=== PATIENT | female | born 1960 | race Caucasian/White ===

== ENCOUNTER 2022-10-22 18:08 | Inpatient (IN) ==
[2022-10-22] MEDS ORDERED: CEFEPIME 2,000 MG/20 ML VIAL IV STA (18:27)
[2022-10-22] MEDS ORDERED: ACETAMINOPHEN 500 MG TAB PO STA (18:27)
[2022-10-22] MEDS ORDERED: SODIUM CHLORIDE 0.9% 1000ML 1,000 ML IV ONE (18:30)
--- NOTE | 2022-10-22 18:35 | Emergency Department Note ---
History of Present Illness General Chief complaint: Fever Stated complaint: FEVER Time Seen by Provider: 10/22/22 18:17 History of Present Illness 61 year old female who presents to ED today with c/o abdominal pain and fever. Patient states she started with periumbilical abdominal pain that radiates to her LLQ about 1 week ago. She noted increasing gas and loose stools at that time as well. On Monday, she had a low grade fever of 99. She has a history of diverticulitis and suspected symptoms were related to that. She called her PCP on who started her on Cipro and Flagyl. She has been taking these since evening. She was seeing improvement in her symptoms up until today when she felt generally unwell and developed another fever. She continues with LLQ abdominal pain but states her BMs have been normal. She denies diarrhea/constipation, hematochezia, or melena. No urinary symptoms. She also reports some nausea and decreased appetite. She tried Tylenol this AM for her pain which did seem to help. Patient notes history of lung CA s/p left upper lobe resection and just recently started immunotherapy in September. She denies chest pain. She reports baseline SOB secondary to her lung CA and does state it seems to be worsening over the last 2 weeks. She denies recent cold like sympto ms. Home Medications Medication Instructions Recorded Confirmed Type acetaminophen 500 mg tablet 1,000 mg PO Q6H PRN Pain 08/04/19 10/22/22 History (Tylenol Extra Strength) cetirizine 10 mg tablet (Zyrtec) 10 mg PO DAILY PRN Allergy Symptoms 08/04/19 10/22/22 History diphenhydramine HCl 25 mg tablet 25 - 50 mg PO Q6H PRN Allergic 08/04/19 10/22/22 History (Benadryl Allergy) Symptoms ibuprofen 200 mg tablet 200 - 400 mg PO Q6H PRN Pain 08/04/19 10/22/22 History omeprazole 20 mg capsule,delayed 20 mg PO QAM Acid Reflux 08/04/19 10/22/22 History release sertraline 50 mg tablet (Zoloft) 75 mg PO QAM 08/04/19 10/22/22 History alprazolam 0.5 mg tablet 0.5 mg PO TID PRN .anxiety when 02/16/22 10/22/22 History flying metformin 500 mg tablet,extended 500 mg PO QAM 02/16/22 10/22/22 History release 24 hr magnesium oxide 400 mg PO BID 05/03/22 10/22/22 History atorvastatin 80 mg tablet 80 mg PO QAM 10/22/22 10/22/22 History ciprofloxacin HCl 500 mg tablet 500 mg PO BID 10/22/22 10/22/22 History ezetimibe 10 mg tablet 10 mg PO QAM 10/22/22 10/22/22 History metronidazole 500 mg tablet 500 mg PO BID 10/22/22 10/22/22 History Allergies Allergy/AdvReac Type Severity Reaction Status Date / Time vaccine adjuvant system, Allergy Intermediate Hives Verified 10/22/22 19:13 [id number] liposomal [From Shingrix (PF)] varicella-zoster virus Allergy Intermediate Hives Verified 10/22/22 19:13 glycoprotein E, recombinant [From Shingrix (PF)] Past Med/Surg History Medical History (Updated 10/22/22 @ 21:26 by Mona Westbrook PA-C) Acid reflux Adenocarcinoma l upper lobe Depression Diverticulitis Diverticulosis Multiple gastric polyps Type 2 diabetes mellitus Surgical History (Updated 05/03/22 @ 12:25 by Leola Bronson RN) H/O colonoscopy H/O esophagogastroduodenoscopy H/O oral surgery H/O partial resection of colon History of lobectomy of lung left upper lobe Family History (Updated 05/03/22 @ 12:26 by Leola Bronson RN) Grandfather (Paternal) Angina pectoris Grandmother (Paternal) Myocardial infarction Social History (Updated 05/03/22 @ 12:33 by Leola Bronson RN) Smoking Status: Never smoker Hx Alcohol Use: Yes Alcohol type: wine Alcohol Intake Frequency: Monthly or Less Hx Substance Use: No Preferred Language: Tongan Communication Ability: Effective Visual Impairment: No Limitations Hearing Ability: Normal Beliefs That Will Affect Care: None marital status: Current Living Situation: Spouse and Family current occupational status: employed current occupation: promotional products distributor Feels Safe at Home: Yes Childhood Exposure to Second-Hand Smoke: Yes (In the home) caffeine: Yes (tea) Dental Care, Regularly: Yes Physical Activity Frequency: 3-4 Times per Week Seatbelt Use: always Sunscreen Use: Yes Do you think of yourself as: straight/heterosexual Gender Identity: Female Physical Exam Vital Signs Vital Signs - 24 hr 10/22/22 18:10 10/22/22 18:20 10/22/22 18:19 Temperature 38.4 C H Temperature Source Oral Pulse Rate 121 H 114 H 116 H Pulse Rate [Left Brachial] Pulse Rhythm Regular Pulse Rhythm [Left Brachial] Pulse Strength [Left Brachial] Respiratory Rate 18 Respiratory Effort / Characteristics Respiratory Depth Respiratory Pattern Blood Pressure 135/79 Blood Pressure [Left Arm] Blood Pressure Mean 97 Blood Pressure Mean [Left Arm] Blood Pressure Position [Left Arm] Pulse Oximetry 97 96 Oxygen Delivery Method Room Air Room Air Sepsis Recent Fever Within 48 Hours Yes Sepsis New/Unexplained Change in Mental Status No Sepsis Action Taken by Nursing No Action Required 10/22/22 18:27 10/22/22 19:24 10/22/22 19:34 Temperature 37.9 C H 37.8 C H 37.7 C H Temperature Source Oral Oral Oral Pulse Rate Pulse Rate [Left Brachial] 110 H Pulse Rhythm Pulse Rhythm [Left Brachial] Regular Regular Regular Pulse Strength [Left Brachial] Normal Normal Normal Respiratory Rate 19 19 19 Respiratory Effort / Characteristics Non-Labored Spontaneous Non-Labored Spontaneous Non-Labored Spontaneous Respiratory Depth Normal Normal Normal Respiratory Pattern Regular Regular Blood Pressure Blood Pressure [Left Arm] 129/71 129/71 114/66 Blood Pressure Mean Blood Pressure Mean [Left Arm] 90 90 82 Blood Pressure Position [Left Arm] Lying Lying Lying Pulse Oximetry 94 95 95 Oxygen Delivery Method Room Air Room Air Room Air Sepsis Recent Fever Within 48 Hours Sepsis New/Unexplained Change in Mental Status Sepsis Action Taken by Nursing 10/22/22 21:12 Temperature 37.5 C Temperature Source Oral Pulse Rate Pulse Rate [Left Brachial] 106 H Pulse Rhythm Pulse Rhythm [Left Brachial] Regular Pulse Strength [Left Brachial] Normal Respiratory Rate 19 Respiratory Effort / Characteristics Non-Labored Spontaneous Respiratory Depth Normal Respiratory Pattern Regular Blood Pressure Blood Pressure [Left Arm] 123/79 Blood Pressure Mean Blood Pressure Mean [Left Arm] 93 Blood Pressure Position [Left Arm] Lying Pulse Oximetry 96 Oxygen Delivery Method Room Air Sepsis Recent Fever Within 48 Hours Sepsis New/Unexplained Change in Mental Status Sepsis Action Taken by Nursing Constitutional: alert and oriented x3. no acute distress. Respiratory: lungs are clear to auscultation without wheezes, rhonchi, or rales bilaterally. equal chest rise. normal respiratory effort, no accessory muscle use. Cardiovascular: normal heart sounds without murmur. regular rate and rhythm. GI: abdomen is soft, nondistended. Periumbilical and LLQ tenderness. nl bowel sounds present throughout. No palpable masses. No rebound tenderness or guarding. No CVA tenderness Neuro: without focal neuro deficits. Psych:appropriate mood and affect. Course Administered Medications Discontinued Medications Acetaminophen (Acetaminophen 500 Mg Tab) 1,000 mg PO NOW STA Stop: 10/22/22 18:28 Last Admin: 10/22/22 19:05 Dose: 1,000 mg Documented By: JAMES Cefepime HCl (Maxipime) 2,000 mg in 20 mls @ 5 mls/min IV NOW STA; Protocol Stop: 10/22/22 18:30 Last Admin: 10/22/22 19:07 Dose: 5 mls/min Documented By: JAMES Sodium Chloride (Nss 1000ml) 1,000 mls @ 999 mls/hr IV .Q1H1M VICKI Stop: 10/22/22 20:30 Last Admin: 10/22/22 20:36 Dose: Not Given Documented By: Admin: 10/22/22 20:28 Dose: 999 mls/hr Documented By: JAMES Sodium Chloride (Nss 1000ml) 1,000 mls @ 999 mls/hr IV .Q1H1M ONE Stop: 10/22/22 19:30 Last Infusion: 10/22/22 20:23 Dose: 0 mls/hr Documented By: Admin: 10/22/22 19:04 Dose: 999 mls/hr Documented By: JAMES Ioversol (Optiray 350 100ml) 88 ml IV ONCE ONE Stop: 10/22/22 20:01 Last Admin: 10/22/22 20:01 Dose: 88 ml Documented By: MAVERICK Medical Decision Making Differential Diagnosis diverticulitis, colitis, sepsis, UTI, pyelonephritis, SBO, mesenteric ischemia, nephrolithiasis, pancreatitis, gallbladder disease, as well as other pathologies. Laboratory Data Attestation: I reviewed the patient's lab results. 10/22/22 18:58 10/22/22 18:58 Lab Results 10/22/22 10/22/22 10/22/22 Range/Units 18:58 18:58 18:58 WBC 4.04 L (4.8-10.8) K/ul RBC 3.23 L (4.20-5.40) M/uL Hgb 9.3 L (12.0-16.0) g/dl Hct 27.2 L (37.0-47.0) % MCV 84.2 (80.0-100.0) fL MCH 28.8 (25.0-34.0) pg MCHC 34.2 (32.0-36.0) g/dL RDW Std Deviation 49.8 H (36.4-46.3) fL RDW Coeff of Geo 16.3 H (11.5-14.5) % Plt Count 137 (130-400) K/uL MPV 9.4 (9.4-12.4) fL Immature Gran % (Auto) 0.5 % Neut % (Auto) 77.8 % Lymph % (Auto) 13.1 % [place] % (Auto) 7.2 % Eos % (Auto) 1.2 % Baso % (Auto) 0.2 % Neut # (Auto) 3.14 (1.40-6.50) K/uL Lymph # (Auto) 0.53 L (1.2-3.4) K/uL [place] # (Auto) 0.29 (0.11-0.59) K/uL Eos # (Auto) 0.05 (0-0.50) K/uL Baso # (Auto) 0.01 (0-0.2) K/uL Immature Gran # (Auto) 0.02 (0.01-0.20) K/uL PT (9.0-12.0) Seconds INR (0.9-1.1) APTT (21.0-31.0) Seconds PTT Ratio Sodium 139 (136-145) mmol/L Potassium 3.4 L (3.5-5.1) mmol/L Chloride 104 (98-107) mmol/L Carbon Dioxide 29 (21-32) mmol/L Anion Gap 6 (3-11) BUN 20 (6-23) mg/dl Creatinine 1.00 (0.6-1.2) mg/dl Est Cr Clr Drug Dosing 53.2 ml/min Est GFR ( Amer) 70.4 ml/min Est GFR (Non-Af Amer) 60.8 ml/min BUN/Creatinine Ratio 20.0 (10-20) Glucose 120 H (70-99(Fasting)) mg/dl Lactate 1.3 (0.4-2.0) mmol/L Calcium 8.9 (8.5-10.1) mg/dl Magnesium 1.3 L (1.7-2.4) mg/dl Total Bilirubin 1.0 (0.2-1.0) mg/dl Direct Bilirubin 0.2 (0-0.2) mg/dl AST 20 (13-39) U/L ALT 17 (7-52) U/L Alkaline Phosphatase 79 (34-104) U/L Troponin I High Sens 3.3 (0-14) pg/ml Total Protein 7.1 (6.0-8.3) gm/dl Albumin 4.4 (3.4-5.0) gm/dl Procalcitonin (0-0.5) ng/ml Urine Color Urine Appearance (Clear) Urine pH (4.5-7.5) Ur Specific [place] (1.000-1.030) Urine Protein (Negative) Urine Glucose (UA) (Negative) Urine Ketones (Negative) Urine Blood (Negative) Urine Nitrite (Negative) Urine Bilirubin (Negative) Urine Urobilinogen (Negative) Ur Leukocyte Esterase (Negative) Urine WBC (Auto) (0-5) /hpf Urine RBC (Auto) (0-4) /hpf U Hyaline Cast (Auto) (0-5) /lpf U Epithel Cells (Auto) (0-5) /lpf Urine Bacteria (Auto) (Negative) Adenovirus (PCR) (NotDetected) B. pertussis DNA (PCR) (NotDetected) B.parapertussis DNA PCR (NotDetected) C. pneumoniae DNA (PCR) (NotDetected) Coronavirus OC43 (PCR) (NotDetected) Coronavirus HKU1 (PCR) (NotDetected) Coronavirus 229E (PCR) (NotDetected) SARS-CoV-2 (PCR) (NotDetected) Coronavirus NL63 (PCR) (NotDetected) Human Metapneumovir PCR (NotDetected) Influenza Type A (PCR) (NotDetected) Influenza Type B (PCR) (NotDetected) M. pneumoniae (PCR) (NotDetected) Parainfluenza 1 (PCR) (NotDetected) Parainfluenza 2 (PCR) (NotDetected) Parainfluenza 3 (PCR) (NotDetected) Parainfluenza 4 (PCR) (NotDetected) RSV (PCR) (NotDetected) Entero/Rhino (PCR) (NotDetected) 10/22/22 10/22/22 10/22/22 Range/Units 18:58 18:58 19:10 WBC (4.8-10.8) K/ul RBC (4.20-5.40) M/uL Hgb (12.0-16.0) g/dl Hct (37.0-47.0) % MCV (80.0-100.0) fL MCH (25.0-34.0) pg MCHC (32.0-36.0) g/dL RDW Std Deviation (36.4-46.3) fL RDW Coeff of Geo (11.5-14.5) % Plt Count (130-400) K/uL MPV (9.4-12.4) fL Immature Gran % (Auto) % Neut % (Auto) % Lymph % (Auto) % [place] % (Auto) % Eos % (Auto) % Baso % (Auto) % Neut # (Auto) (1.40-6.50) K/uL Lymph # (Auto) (1.2-3.4) K/uL [place] # (Auto) (0.11-0.59) K/uL Eos # (Auto) (0-0.50) K/uL Baso # (Auto) (0-0.2) K/uL Immature Gran # (Auto) (0.01-0.20) K/uL PT 10.9 (9.0-12.0) Seconds INR 1.0 (0.9-1.1) APTT 24.8 (21.0-31.0) Seconds PTT Ratio 0.9 Sodium (136-145) mmol/L Potassium (3.5-5.1) mmol/L Chloride (98-107) mmol/L Carbon Dioxide (21-32) mmol/L Anion Gap (3-11) BUN (6-23) mg/dl Creatinine (0.6-1.2) mg/dl Est Cr Clr Drug Dosing ml/min Est GFR ( Amer) ml/min Est GFR (Non-Af Amer) ml/min BUN/Creatinine Ratio (10-20) Glucose (70-99(Fasting)) mg/dl Lactate (0.4-2.0) mmol/L Calcium (8.5-10.1) mg/dl Magnesium (1.7-2.4) mg/dl Total Bilirubin (0.2-1.0) mg/dl Direct Bilirubin (0-0.2) mg/dl AST (13-39) U/L ALT (7-52) U/L Alkaline Phosphatase (34-104) U/L Troponin I High Sens (0-14) pg/ml Total Protein (6.0-8.3) gm/dl Albumin (3.4-5.0) gm/dl Procalcitonin 0.07 (0-0.5) ng/ml Urine Color Urine Appearance (Clear) Urine pH (4.5-7.5) Ur Specific [place] (1.000-1.030) Urine Protein (Negative) Urine Glucose (UA) (Negative) Urine Ketones (Negative) Urine Blood (Negative) Urine Nitrite (Negative) Urine Bilirubin (Negative) Urine Urobilinogen (Negative) Ur Leukocyte Esterase (Negative) Urine WBC (Auto) (0-5) /hpf Urine RBC (Auto) (0-4) /hpf U Hyaline Cast (Auto) (0-5) /lpf U Epithel Cells (Auto) (0-5) /lpf Urine Bacteria (Auto) (Negative) Adenovirus (PCR) Not Detected (NotDetected) B. pertussis DNA (PCR) Not Detected (NotDetected) B.parapertussis DNA PCR Not Detected (NotDetected) C. pneumoniae DNA (PCR) Not Detected (NotDetected) Coronavirus OC43 (PCR) Not Detected (NotDetected) Coronavirus HKU1 (PCR) Not Detected (NotDetected) Coronavirus 229E (PCR) Not Detected (NotDetected) SARS-CoV-2 (PCR) Not Detected (NotDetected) Coronavirus NL63 (PCR) Not Detected (NotDetected) Human Metapneumovir PCR Not Detected (NotDetected) Influenza Type A (PCR) Not Detected (NotDetected) Influenza Type B (PCR) Not Detected (NotDetected) M. pneumoniae (PCR) Not Detected (NotDetected) Parainfluenza 1 (PCR) Not Detected (NotDetected) Parainfluenza 2 (PCR) Not Detected (NotDetected) Parainfluenza 3 (PCR) Not Detected (NotDetected) Parainfluenza 4 (PCR) Not Detected (NotDetected) RSV (PCR) Not Detected (NotDetected) Entero/Rhino (PCR) Not Detected (NotDetected) 10/22/22 Range/Units 19:40 WBC (4.8-10.8) K/ul RBC (4.20-5.40) M/uL Hgb (12.0-16.0) g/dl Hct (37.0-47.0) % MCV (80.0-100.0) fL MCH (25.0-34.0) pg MCHC (32.0-36.0) g/dL RDW Std Deviation (36.4-46.3) fL RDW Coeff of Geo (11.5-14.5) % Plt Count (130-400) K/uL MPV (9.4-12.4) fL Immature Gran % (Auto) % Neut % (Auto) % Lymph % (Auto) % [place] % (Auto) % Eos % (Auto) % Baso % (Auto) % Neut # (Auto) (1.40-6.50) K/uL Lymph # (Auto) (1.2-3.4) K/uL [place] # (Auto) (0.11-0.59) K/uL Eos # (Auto) (0-0.50) K/uL Baso # (Auto) (0-0.2) K/uL Immature Gran # (Auto) (0.01-0.20) K/uL PT (9.0-12.0) Seconds INR (0.9-1.1) APTT (21.0-31.0) Seconds PTT Ratio Sodium (136-145) mmol/L Potassium (3.5-5.1) mmol/L Chloride (98-107) mmol/L Carbon Dioxide (21-32) mmol/L Anion Gap (3-11) BUN (6-23) mg/dl Creatinine (0.6-1.2) mg/dl Est Cr Clr Drug Dosing ml/min Est GFR ( Amer) ml/min Est GFR (Non-Af Amer) ml/min BUN/Creatinine Ratio (10-20) Glucose (70-99(Fasting)) mg/dl Lactate (0.4-2.0) mmol/L Calcium (8.5-10.1) mg/dl Magnesium (1.7-2.4) mg/dl Total Bilirubin (0.2-1.0) mg/dl Direct Bilirubin (0-0.2) mg/dl AST (13-39) U/L ALT (7-52) U/L Alkaline Phosphatase (34-104) U/L Troponin I High Sens (0-14) pg/ml Total Protein (6.0-8.3) gm/dl Albumin (3.4-5.0) gm/dl Procalcitonin (0-0.5) ng/ml Urine Color Yellow Urine Appearance Clear (Clear) Urine pH 5.5 (4.5-7.5) Ur Specific [place] 1.020 (1.000-1.030) Urine Protein Negative (Negative) Urine Glucose (UA) Negative (Negative) Urine Ketones Trace H (Negative) Urine Blood Negative (Negative) Urine Nitrite Negative (Negative) Urine Bilirubin Negative (Negative) Urine Urobilinogen Negative (Negative) Ur Leukocyte Esterase Trace H (Negative) Urine WBC (Auto) 1-5 (0-5) /hpf Urine RBC (Auto) 0-4 (0-4) /hpf U Hyaline Cast (Auto) 1-5 (0-5) /lpf U Epithel Cells (Auto) 10-20 H (0-5) /lpf Urine Bacteria (Auto) Negative (Negative) Adenovirus (PCR) (NotDetected) B. pertussis DNA (PCR) (NotDetected) B.parapertussis DNA PCR (NotDetected) C. pneumoniae DNA (PCR) (NotDetected) Coronavirus OC43 (PCR) (NotDetected) Coronavirus HKU1 (PCR) (NotDetected) Coronavirus 229E (PCR) (NotDetected) SARS-CoV-2 (PCR) (NotDetected) Coronavirus NL63 (PCR) (NotDetected) Human Metapneumovir PCR (NotDetected) Influenza Type A (PCR) (NotDetected) Influenza Type B (PCR) (NotDetected) M. pneumoniae (PCR) (NotDetected) Parainfluenza 1 (PCR) (NotDetected) Parainfluenza 2 (PCR) (NotDetected) Parainfluenza 3 (PCR) (NotDetected) Parainfluenza 4 (PCR) (NotDetected) RSV (PCR) (NotDetected) Entero/Rhino (PCR) (NotDetected) Imaging Data Attestation: I personally reviewed and interpreted this imaging study as follow s: My Impression: no pneumonia, pleural effusion, or pneumothorax Radiologist's Impression: Chest X-Ray 10/22/22 18:27 XR chest 1V portable CLINICAL HISTORY: Sepsis TECHNIQUE: Single frontal radiograph of the chest was obtained. Comparison: None available at the time of this dictation. FINDINGS: A right portacatheter is seen. The cardiomediastinal silhouette is normal. The lungs are clear. No evidence of pleural effusion or pneumothorax. IMPRESSION: No acute abnormalities and in particular no radiographic evidence of pneumonia. ACT 112: Negative or not required by law. Electronically signed by: Rigo Coon M.D. 10/22/2022 6:52 PM Abdomen/Pelvis CT 10/22/22 18:34 Exam(s): CT ABDOMEN + PELVIS With Contrast IV Amt: 88ml EXAM: CT Abdomen and Pelvis With Intravenous Contrast CLINICAL HISTORY: Reason for exam: LLQ pain h/o diverticulitis. TECHNIQUE: Axial computed tomography images of the abdomen and pelvis with intravenous contrast. Automated exposure control was utilized for the study. A dose lowering technique was utilized adhering to the principles of ALARA. CONTRAST: Patient received 88ml of IV contrast COMPARISON: No relevant prior studies available. FINDINGS: Lung bases: Unremarkable. No mass. No consolidation. ABDOMEN: Liver: Hepatic steatosis. Gallbladder and bile ducts: Unremarkable. No calcified stones. No ductal dilation. Pancreas: Unremarkable. No mass. No ductal dilation. Spleen: Unremarkable. No splenomegaly. Adrenals: Unremarkable. No mass. Kidneys and ureters: No hydronephrosis were not delayed nephrogram. Nonobstructing 2 mm left lower pole renal calculus. Stomach and bowel: Positive for acute sigmoid diverticulitis, consisting of mild peridiverticular inflammation. No perforation or abscess. No free intraperitoneal air. No obstruction. PELVIS: Appendix: No findings to suggest acute appendicitis. Bladder: Unremarkable. No mass. Reproductive: Posterior uterine fibroid measures 3.1 cm. ABDOMEN and PELVIS: Intraperitoneal space: Unremarkable. No free air. No significant fluid collection. Bones/joints: Degenerative changes of the spine. No acute fracture. No dislocation. Soft tissues: Unremarkable. Vasculature: Unremarkable. No abdominal aortic aneurysm. Lymph nodes: Unremarkable. No enlarged lymph nodes. IMPRESSION: Positive for acute sigmoid diverticulitis, consisting of mild peridiverticular inflammation. No perforation or abscess. No free intraperitoneal air. Electronically signed by: Alvaro Temple MD 10/22/22 21:12 PM MDM Narrative 61 year old female who presents to ED today with c/o LLQ abdominal pain and feve r. Review of pertinent visits and patient history performed including [facility] PCP visit from 10/21/2022. Vital signs in ED demonstrate febrile 38.4 and tachycardic. SpO2 96 on RA. Given clinical presentation and vital signs, sepsis work up was initiated. IV access was established and labs, blood cultures obtained. She was given 2L IV fluids as well as IV Tylenol for pain and Cefepime for empiric antibiotics. Clinically, patient is nontoxic appearing in no acute distress. Lungs CTA. Periumbilical and LLQ abdominal pain. Labs were performed and demonstrated mild neutropenia 4, hgb 9.3. No evidence of significant electrolyte abnormalities. Coags within normal limits. Lactate and procalcitonin normal. Viral panel negative. EKG demonstrating sinus tachycardia at a rate of 109 bpm without evidence of ischemic changes. Urinalysis demonstrates trace ketones and trace leukocyte esterase. CXR unremarkable for acute pathology. CT abd/pelvis demonstrates acute sigmoid diverticulitis without perforation or abscess. Patient was re-evaluated on numerous occasions. She is nontoxic appearing, in no acute distress. Pain improved with IV Tylenol. She was updated on lab and imaging results. She reports previous issues with anemia following chemotherapy. She denies overt signs of bleeding. This case was discussed with attending, Dr. Rubio, who agrees with work up and treatment plan. Given clinical presentation of failed outpatient diverticulitis treatment as well as immunocompromised status, recommend admission to hospital for continued IV abx. Patient verbalized understanding and agreeable to this plan. Case was discussed with hospitalist, Dr. Campbell, who graciously accepted patient for admission. Patient was admitted to hospital in stable condition. Impression & Plan Diverticulitis, Acquired immunocompromised state, Fever Discharge Plan Visit Data Chief Complaint: Fever Stated Complaint: FEVER ED Provider: Moy Rubio ED Midlevel Provider: Mona Westbrook Discharge Problem: Diverticulitis, Acquired immunocompromised state, Fever Patient Disposition: Admitted As Inpatient Forms Stand Alone Forms: [facility] Prescriptions Prescriptions: No Action omeprazole 20 mg capsule,delayed release(DR/EC) 20 mg PO QAM sertraline [Zoloft] 50 mg tablet 75 mg PO QAM cetirizine [Zyrtec] 10 mg Tablet 10 mg PO DAILY PRN (Reason: Allergy Symptoms) acetaminophen [Tylenol Extra Strength] 500 mg Tablet 1,000 mg PO Q6H PRN (Reason: Pain) diphenhydramine HCl [Benadryl Allergy] 25 mg Tablet 25 - 50 mg PO Q6H PRN (Reason: Allergic Symptoms) ibuprofen 200 mg Tablet 200 - 400 mg PO Q6H PRN (Reason: Pain) alprazolam 0.5 mg tablet 0.5 mg PO TID PRN (Reason: .anxiety when flying) metformin 500 mg tablet extended release 24 hr 500 mg PO QAM atorvastatin 80 mg tablet 80 mg PO QAM metronidazole 500 mg tablet 500 mg PO BID Rx Instructions: STARTED 10/20/22 FOR 10 DAYS ciprofloxacin HCl 500 mg tablet 500 mg PO BID Rx Instructions: STARTED 10/20/22 FOR 10 DAYS. ezetimibe 10 mg tablet 10 mg PO QAM magnesium oxide 400 mg magnesium Tablet 400 mg PO BID Rx Instructions: ON HOLD TILL AFTER ANTIBIOTICS DONE. Referrals Referrals: Kevin Reynolds MD [Primary Care Provider] -
--- NOTE | 2022-10-22 18:54 | XRay Report ---
XR chest 1V portable CLINICAL HISTORY: Sepsis TECHNIQUE: Single frontal radiograph of the chest was obtained. Comparison: None available at the time of this dictation. FINDINGS: A right portacatheter is seen. The cardiomediastinal silhouette is normal. The lungs are clear. No ev idence of pleural effusion or pneumothorax. IMPRESSION: No acute abnormalities and in particular no radiographic evidence of pneumonia. ACT 112: Negative or not required by law. Electronically signed by: Rigo Coon M.D. 10/22/2022 6:52 PM
[2022-10-22 19:17] LABS: Basophils # (auto) 0.01 K/uL (0-0.2); Basophils % (auto) 0.2 %; Eosinophils # (auto) 0.05 K/uL (0-0.50); Eosinophils % (auto) 1.2 %; Hematocrit (blood only) 27.2 % (37.0-47.0); Hemoglobin 9.3 g/dl (12.0-16.0); Immature Granulocytes # (auto) 0.02 K/uL (0.01-0.20); Immature Granulocytes % (auto) 0.5 %; Lymphocytes # (auto) 0.53 K/uL (1.2-3.4); Lymphocytes % (auto) 13.1 %; Mean Corpuscular Hemoglobin 28.8 pg (25.0-34.0); Mean Corpuscular Hgb Conc 34.2 g/dL (32.0-36.0); Mean Corpuscular Volume 84.2 fL (80.0-100.0); Mean Platelet Volume 9.4 fL (9.4-12.4); Monocytes # (auto) 0.29 K/uL (0.11-0.59); Monocytes % (auto) 7.2 %; Neutrophils # (auto) 3.14 K/uL (1.40-6.50); Neutrophils % (auto) 77.8 %; Platelet Count 137 K/uL (130-400); RDW Coefficient of Variation 16.3 % (11.5-14.5); RDW Standard Deviation 49.8 fL (36.4-46.3); Red Blood Count 3.23 M/uL (4.20-5.40); White Blood Count 4.04 K/ul (4.8-10.8)
[2022-10-22 19:34] LABS: Albumin Level 4.4 gm/dl (3.4-5.0); Bilirubin Direct 0.2 mg/dl (0-0.2); Calcium 8.9 mg/dl (8.5-10.1); Creatinine Clr Calc Pharmacy 53.2 ml/min; Est GFR (African American) 70.4 ml/min; Est GFR (Non-African American) 60.8 ml/min; Magnesium 1.3 mg/dl (1.7-2.4); Potassium 3.4 mmol/L (3.5-5.1); Total Protein 7.1 gm/dl (6.0-8.3)
[2022-10-22 19:41] LABS: Troponin I High Sensitivity 3.3 pg/ml (0-14)
[2022-10-22 19:53] LABS: Partial Thromboplastin Ratio 0.9; Partial Thromboplastin Time 24.8 Seconds (21.0-31.0); Prothrombin Time 10.9 Seconds (9.0-12.0)
[2022-10-22] MEDS ORDERED: OPTIRAY 350 100ml IV ONE (20:00)
[2022-10-22 20:24] LABS: Appearance Urine Clear (Clear); Bacteria Urine Automated Negative (Negative); Bilirubin Urine Negative (Negative); Blood Urine Negative (Negative); Color Urine Yellow; Glucose Urine UA Negative (Negative); Ketones Urine Trace (Negative); Leukocyte Esterase Urine Trace (Negative); Nitrite Urine Negative (Negative); Protein Urine Negative (Negative); RBC Urine Automated 0-4 /hpf (0-4); Urobilinogen Urine Negative (Negative); pH Urine 5.5 (4.5-7.5)
[2022-10-22] MEDS: SODIUM CHLORIDE 0.9% 1000ML 1,000 ML IV SCH ×2 (20:28→20:36)
[2022-10-22 20:32] LABS: Adenovirus PCR Not Detected (NotDetected); Bordetella parapertussis PCR Not Detected (NotDetected); Bordetella pertussis PCR Not Detected (NotDetected); Chlamydia pneumoniae PCR Not Detected (NotDetected); Coronavirus 229E PCR Not Detected (NotDetected); Coronavirus CoV-2 (COVID19)PCR Not Detected (NotDetected); Coronavirus HKU1 PCR Not Detected (NotDetected); Coronavirus NL63 PCR Not Detected (NotDetected); Coronavirus OC43PCR Not Detected (NotDetected); Human Metapneumovirus PCR Not Detected (NotDetected); Influenza A PCR Not Detected (NotDetected); Influenza B PCR Not Detected (NotDetected); Mycoplasma pneumoniae PCR Not Detected (NotDetected); Parainfluenza Virus 1 PCR Not Detected (NotDetected); Parainfluenza Virus 2 PCR Not Detected (NotDetected); Parainfluenza Virus 3 PCR Not Detected (NotDetected); Parainfluenza Virus 4 PCR Not Detected (NotDetected); Respiratory Syncytial VirusPCR Not Detected (NotDetected); Rhinovirus/Enterovirus PCR Not Detected (NotDetected)
--- NOTE | 2022-10-22 21:13 | CT Scan Report ---
Exam(s): CT ABDOMEN + PELVIS With Contrast IV Amt: 88ml EXAM: CT Abdomen and Pelvis With Intravenous Contrast CLINICAL HISTORY: Reason for exam: LLQ pain h/o diverticulitis. TECHNIQUE: Axial computed tomography images of the abdomen and pelvis with intravenous contrast. Automated exposure control was utilized for the study. A dose lowering technique was utilized adhering to the principles of ALARA. CONTRAST: Patient received 88ml of IV contrast COMPARISON: No relevant prior studies available. FINDINGS: Lung bases: Unremarkable. No mass. No consolidation. ABDOMEN: Liver: Hepatic steatosis. Gallbladder and bile ducts: Unremarkable. No calcified stones. No ductal dilation. Pancreas: Unremarkable. No mass. No ductal dilation. Spleen: Unremarkable. No splenomegaly. Adrenals: Unremarkable. No mass. Kidneys and ureters: No hydronephrosis were not delayed nephrogram. Nonobstructing 2 mm left lower pole renal calculus. Stomach and bowel: Positive for acute sigmoid diverticulitis, consisting of mild peridiverticular inflammation. No perforation or abscess. No free intraperitoneal air. No obstruction. PELVIS: Appendix: No findings to suggest acute appendicitis. Bladder: Unremarkable. No mass. Reproductive: Posterior uterine fibroid measures 3.1 cm. ABDOMEN and PELVIS: Intraperitoneal space: Unremarkable. No free air. No significant fluid collection. Bones/joints: Degenerative changes of the spine. No acute fracture. No dislocation. Soft tissues: Unremarkable. Vasculature: Unremarkable. No abdominal aortic aneurysm. Lymph nodes: Unremarkable. No enlarged lymph nodes. IMPRESSION: Positive for acute sigmoid diverticulitis, consisting of mild peridiverticular inflammation. No perforation or abscess. No free intraperitoneal air. Electronically signed by: Alvaro Temple MD 10/22/22 21:12 PM
[2022-10-22] MEDS: MAGNESIUM SULFATE / D5W 1 GM/100 ML BAG IV SCH (22:18)
[2022-10-22] MEDS ORDERED: CARBOHYDRATES FOR HYPOGLYCEMIA PO PRN (23:43)
[2022-10-22] MEDS ORDERED: MoRPHine SULFATE 2 MG/ML CARP IV PRN (23:43)
[2022-10-22] MEDS ORDERED: ALPRAZolam 0.5 MG TABLET PO PRN (23:43)
[2022-10-22] MEDS ORDERED: GLUCOSE 40% GEL 15 GM TUBE PO PRN (23:43)
[2022-10-22] MEDS ORDERED: ONDANSETRON INJ 2 MG/ML 2 ML VIAL IV PRN (23:43)
[2022-10-22] MEDS ORDERED: DEXTROSE 50% 50 ML SYRINGE IV PRN (23:43)
[2022-10-22] MEDS ORDERED: GLUCOSE 10 TAB/TUBE PO PRN (23:43)
[2022-10-22] MEDS ORDERED: CETIRIZINE HCL 10 MG TABLET PO PRN (23:43)
[2022-10-22] MEDS ORDERED: GLUCAGON FOR INJ 1 MG VIAL SQ PRN (23:43)
[2022-10-22] MEDS ORDERED: diphenhydrAMINE Capsule 25 MG CAP PO PRN (23:55)
[2022-10-23] MEDS: ACETAMINOPHEN 325 MG TAB PO PRN ×4 (00:06→20:37)
[2022-10-23] MEDS: SODIUM CHLORIDE 0.9% 1000ML 1,000 ML IV SCH ×2 (00:09→10:24)
[2022-10-23] MEDS: PIPERACILLIN/TAZOBACTAM 3.375 GM in DEXTROSE 5% 100 ML IV SCH ×3 (00:19→16:50)
--- NOTE | 2022-10-23 00:19 | History and Physical Report ---
DATE OF ADMISSION: 10/22/2022 CHIEF COMPLAINT: Fever. 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 The patient says she developed some abdominal pain in mid abdomen radiating to left lower quadrant, left flank and also had an episode of explosive diarrhea few days ago and felt like having diverticulitis as she had many episodes of diverticulitis. So she called family doctor and she could not get appointment and she was prescribed Cipro and Flagyl, which she started on last night and she went to PCP office yesterday, and advised to continue the antibiotics, soft diet and to go to the ER if symptoms worsen. Her abdominal pain is improved, but she developed fever today, that is the reason she came to the ER. She was having spike in temperature 38.4 in the ER and CAT scan showing sigmoid diverticulitis, so we were called for admission. Currently, resting comfortably, hemodynamically stable. She has some mild headache. No fever, no neck pain. She has on and off chest pain now, says, from radiation pneumonitis.Chest pain goes to the back and shoulder that comes and goes. Lately it is getting worse, but currently the pain is not there. Says she is always short of breath since radiation and also has cough. Denies any blurred visions, no earache, no runny nose, no sore throat. No nausea, no vomiting. Currently normal bowel movements. Normal bladder movements. No swelling in the legs ALLERGIES: SHINGRIX VACCINE VARICELLA-ZOSTER VIRUS RECOMBINANT VACCINE. MEDICATIONS: The patient is on Tylenol 1000 mg p.o. q. 6 hours p.r.n., alprazolam 0.5 mg p.o. t.i.d. p.r.n., atorvastatin 80 mg p.o. daily, Zyrtec 10 mg p.o. daily p.r.n., ciprofloxacin 500 mg p.o. b.i.d., Flagyl 500 mg p.o. t.i.d., Benadryl 25 mg p.o. q. 6 hours p.r.n., ezetimibe 10 mg p.o. daily, ibuprofen 200-400 mg p.o. q. 6 hours p.r.n., magnesium oxide 400 mg p.o. b.i.d., metformin 500 mg p.o. a.m., omeprazole 20 mg p.o. a.m. p.r.n., Zoloft 75 mg p.o. a.m. FAMILY HISTORY: Significant for daughter has allergies, son has bipolar disorder, father had cirrhosis and heart disorder, maternal grandfather had heart disorder, paternal grandfather had heart disorder, maternal grandmother had heart disorder. SOCIAL HISTORY: , no smoking. Alcohol, rarely. No drug use. REVIEW OF SYSTEMS: As per HPI. Rest of the review of systems is negative. PHYSICAL EXAMINATION: GENERAL: The patient is of moderate build, not in acute distress. VITAL SIGNS: Temperature 37.5, T-max 38.4, pulse 106, respiratory rate 19, blood pressure 135/79, oxygen 96% on room air. HEENT: Pupils equal, round and reactive to light. Oral mucosa moist. NECK: No JVD, no neck masses. CARDIOVASCULAR: S1 and S2 heard. Regular rate and rhythm. No murmur, no gallop. RESPIRATORY SYSTEM: Normal AP diameter. No accessory muscle use. No wheezing or crackles. ABDOMEN: Soft. Bowel sounds present. Mild left lower quadrant tenderness. No guarding, no rigidity, no distention. CENTRAL NERVOUS SYSTEM: Alert and oriented. Speech is clear. No facial droop. Obeys simple commands. Moves extremities. EXTREMITIES: No edema, no erythema. LABORATORY DATA: WBC 4.04, hemoglobin 9.3, hematocrit 27.2, platelets 137. PT 10.9, INR 1, APTT 24.8. Sodium 139, potassium 3.4, chloride 104, bicarbonate 29, BUN 20, creatinine 1, serum glucose 120, lactate 1.3, calcium 8.9, magnesium 1.3, total bilirubin 1.0, direct bilirubin 0.2, AST 20, ALT 17, alkaline phosphatase 110. Troponin I high sensitivity 3.3. Procalcitonin 0.07. Urinalysis negative. Respiratory BioFire negative. IMAGING DATA: Chest x-ray, no acute findings. CT of abdomen and pelvis with IV contrast showing positive acute sigmoid diverticulitis consistent with mild peridiverticular inflammation, no perforation or abscess. No free intraperitoneal air. EKG: Sinus tachycardia at a rate of 109, incomplete right bundle-branch block, no acute ST changes seen. ASSESSMENT AND PLAN: This is a 61-year-old female who presents with acute diverticulitis. 1. Acute diverticulitis She was started on Cipro and Flagyl as an outpatient on night. Presents with fevers. She failed outpatient treatment. The patient is also somewhat immunocompromised with lung cancer, currently on immunotherapy. Will start on IV Zosyn. We will keep him on clear liquid diet, IV fluids, IV morphine p.r.n. Closely monitor in the medical floor. If not improving, we will consult Surgery consult. Follow up with GI after discharge. 2. Lung cancer, left upper lobe, status post lobectomy, chemo and radiation, continue immunotherapy, follow up with Hematology/Oncology. 3. The patient has radiation pneumonitis. We will need to follow up. 4. History of diabetes: Hold metformin. Placed on insulin sliding scale. Follow the blood sugars. 5. Hyperlipidemia, on statin and ezetimibe. 6. Hypomagnesemia: We will replace.Follow labs 7. Anemia and leukopenia, probably from ongoing chemo. We will check stool for Hemoccult. 8. Deep venous thrombosis prophylaxis: Lovenox. DISPOSITION: Closely monitor in the medical floor. PT, OT prior to discharge. Social service to help with discharge planning. Level 1 full code. Job ID: [id number] MTDD
[2022-10-23] MEDS: MAGNESIUM SULFATE / D5W 1 GM/100 ML BAG IV SCH (00:27)
[2022-10-23 06:30] LABS: Basophils # (auto) 0.02 K/uL (0-0.2); Basophils % (auto) 0.6 %; Eosinophils # (auto) 0.09 K/uL (0-0.50); Eosinophils % (auto) 2.8 %; Hemoglobin 8.4 g/dl (12.0-16.0); Immature Granulocytes # (auto) 0.02 K/uL (0.01-0.20); Immature Granulocytes % (auto) 0.6 %; Lymphocytes # (auto) 0.43 K/uL (1.2-3.4); Lymphocytes % (auto) 13.6 %; Mean Corpuscular Hemoglobin 28.8 pg (25.0-34.0); Mean Corpuscular Hgb Conc 33.6 g/dL (32.0-36.0); Mean Corpuscular Volume 85.6 fL (80.0-100.0); Mean Platelet Volume 9.2 fL (9.4-12.4); Monocytes # (auto) 0.29 K/uL (0.11-0.59); Monocytes % (auto) 9.1 %; Neutrophils # (auto) 2.32 K/uL (1.40-6.50); Neutrophils % (auto) 73.3 %; Platelet Count 131 K/uL (130-400); RDW Coefficient of Variation 16.4 % (11.5-14.5); RDW Standard Deviation 50.9 fL (36.4-46.3); Red Blood Count 2.92 M/uL (4.20-5.40); White Blood Count 3.17 K/ul (4.8-10.8)
[2022-10-23 06:43] LABS: BUN Creatinine Ratio 14.4 (10-20); Calcium 8.7 mg/dl (8.5-10.1); Creatinine Clr Calc Pharmacy 59.8 ml/min; Est GFR (African American) 73.1 ml/min; Potassium 3.6 mmol/L (3.5-5.1)
[2022-10-23] MEDS: ATORVASTATIN 40 MG TAB PO SCH (08:56)
[2022-10-23] MEDS: ENOXAPARIN INJ 40 MG/0.4 ML SYR SQ SCH (08:57)
[2022-10-23] MEDS: EZETIMIBE 10 MG TABLET PO SCH (08:58)
[2022-10-23] MEDS: MAGNESIUM OXIDE 400 MG TAB PO SCH ×2 (08:59→20:37)
[2022-10-23] MEDS: PANTOprazole 40 MG TAB PO SCH (08:59)
[2022-10-23] MEDS: SERTRALINE HCL 50 MG TABLET PO SCH (08:59)
[2022-10-23] MEDS: INSULIN ASPART PER UNIT SC SCH ×4 (09:00→20:52)
--- NOTE | 2022-10-23 12:16 | Hospitalist Progress Note ---
Date of Service October 23, 2022 Assessment & Plan (1) Diverticulitis: Plan 61-year-old lady with PMH of T2DM, HLD, lung neoplasm x left upper lobe s/p lobectomy/chemoradiation currently on immunotherapy since 1 to 2 weeks ago [employer], allergic rhinitis, GERD, HLD who was being treated for diverticulitis as an outpatient with Cipro and Flagyl [she took 2 days worth of antibiotics by presentation time] presented to ED 10/22 with complaint of spiking temperature [38.4C in the ED]. She is being managed for the following: Acute diverticulitis, failure of outpatient therapy Sepsis POA: Elevated temperature and pulse rate at presentation. Patient started on Cipro and Flagyl as an outpatient 2 days [employer], presented 10/22 with fever and lower abdominal pain. Patient is immunocompromised status [see above] Admitting CXR with no acute findings; admitting CTAP positive for acute sigmoid diverticulitis. No perforation or abscess or free intraperitoneal air. Patient started on Zosyn 10/23, will continue with same. Patient reports tolerating diet well, improving belly pain, has been afebrile. We will advance diet as tolerated. We will DC the IV fluids once diet picks up. Pain management, follow-up GI on discharge. Chronic Anemia: OP chart review on 10/23 with hemoglobin ranging from 8.8-12.0 from May 2022 to September 2022. Admitting hemoglobin of 9.3, will monitor as appropriate. today 8.4; monitor closely. Other chronic medical conditions: Left upper lobe lung cancer -status post lobectomy/chemoradiation, currently under immunotherapy. Follow-up with hematology oncology as prior. Radiation pneumonitis: History of, admitting CXR with no acute abnormalities, continue to monitor. T2DM: Metformin on hold, sliding scale while in hospital HLD: Continue with statin and ezetimibe Anemia and leukopenia: Probably from ongoing chemo. Will check FOBT to rule out GI bleed. DVT prophylaxis: Lovenox Full code Admission and Anticipated Discharge Date Admission Date: October 22, 2022 Subjective Patient seen and examined at bedside as a follow-up of acute diverticulitis/failure of outpatient treatment. Patient was lying in bed, on room air, NAD, reports improving belly pain, will advance her diet, has been afebrile lately, denies headache or chest pain or cough or other review of symptoms. Physical Exam Physical Exam: GENERAL: Alert and oriented x3. NAD, on RA. HEENT: No pallor, no icterus. Pupils equal, round and reactive to light. Oral mucosa moist. NECK: No JVD, no neck masses. HEART: S1 and S2 heard. Regular rate and rhythm. No murmur, no gallop. RESPIRATORY SYSTEM: Normal AP diameter. No accessory muscle use. No wheezing, no crackles. ABDOMEN: Soft, bowel sounds present, mild abd tender, no distention. CENTRAL NERVOUS SYSTEM: No facial droop. Speech is clear. Obeys simple commands. Moves extremities. EXTREMITIES: No edema, no erythema seen. Results & Data Results & Data ([place]) Vital Signs (Past 12 Hours) Vital Signs Temp Pulse Resp BP Pulse Ox O2 Del Method 10/23/22 07:20 37.3 C 88 16 113/72 95 Room Air 10/23/22 05:30 37.2 C 10/23/22 05:05 37.0 C 110 H 16 112/72 95 Room Air 10/23/22 00:10 Room Air 10/23/22 00:10 112/72
--- NOTE | 2022-10-23 14:36 | Electrocardiogram Report ---
Test Reason : Blood Pressure : / mmHG Vent. Rate : 109 BPM Atrial Rate : 109 BPM P-R Int : 152 ms QRS Dur : 096 ms QT Int : 342 ms P-R-T Axes : 035 -09 026 degrees QTc Int : 460 ms Sinus tachycardia Incomplete right bundle branch block Normal ECG No previous ECGs available Confirmed by Jack Bowling ([id number]) on 10/23/2022 2:36:14 PM Referred By: REFERRED SELF Confirmed By:Jack Bowling
[2022-10-23] MEDS ORDERED: MELATONIN 3 MG TAB PO PRN (17:00)
[2022-10-23] MEDS ORDERED: POLYETHYLENE (MIRALAX) 17 GM PACK PO STA (20:37)
[2022-10-23] MEDS ORDERED: LEVALBUTEROL HCL 0.63 MG/3 ML NEB NEB PRN (21:02)
[2022-10-23] MEDS ORDERED: guaiFENesin/CODEINE 100MG/10MG 5ML UDC PO PRN (22:46)
[2022-10-23] MEDS ORDERED: KETOROLAC TROMETHAMINE 15 MG/ML VIAL IV ONE (23:36)
[2022-10-24] MEDS ORDERED: SODIUM CHLORIDE 0.9% 500 ML IV SCH ×2 (00:45→02:00)
[2022-10-24] MEDS: SODIUM CHLORIDE 0.9% 1000ML 1,000 ML IV SCH ×3 (01:40→17:43)
[2022-10-24] MEDS: DOXYCYCLINE HYCLATE 100 MG in DEXTROSE 5% 100 ML IV SCH ×2 (01:40→15:37)
[2022-10-24] MEDS ORDERED: Nursing to Pharmacy Communication SCH (03:15)
[2022-10-24] MEDS ORDERED: VANCOMYCIN CONSULT ACTIVE PRN (03:22)
[2022-10-24] MEDS ORDERED: VANCOMYCIN HCL 1,500 MG in SODIUM CHLORIDE 0.9% 500 ML IV ONE (03:45)
[2022-10-24 06:58] LABS: Appearance Urine Clear (Clear); Bilirubin Urine Negative (Negative); Blood Urine Negative (Negative); Color Urine Yellow; Glucose Urine UA Negative (Negative); Ketones Urine Negative (Negative); Leukocyte Esterase Urine Negative (Negative); Nitrite Urine Negative (Negative); Protein Urine Negative (Negative); Specific Gravity Urine 1.011 (1.000-1.030); Urobilinogen Urine Negative (Negative)
--- NOTE | 2022-10-24 07:33 | XRay Report ---
SINGLE VIEW CHEST CLINICAL HISTORY: Dyspnea. FINDINGS: An AP, portable, upright chest radiograph is compared to study dated 10/22/2022. A right-side d central venous infusion port is unchanged in position. There is leftward shift of the mediastinum. The cardiomediastinal silhouette is otherwise unremarkable. There is volume loss in the left lung wit h elevation of the left hemidiaphragm. Airspace opacities are seen in the left midlung. The right claudio g appears clear. No large pleural effusion or pneumothorax is identified. The skeletal structures are osteopenic. The bony thorax is grossly intact. IMPRESSION: 1. Volume loss in the left lung is similar to previous. Correlate with the medical/surgical history. 2. Airspace opacities are seen in the left midlung. Correlate clinically for evidence of a mild infec tious/inflammatory pneumonitis. Radiographic follow-up to resolution is recommended. ACT 112: Negative or not required by law. Electronically signed by: Antony Cannon M.D. 10/24/2022 7:31 AM
[2022-10-24] MEDS: ATORVASTATIN 40 MG TAB PO SCH (08:01)
[2022-10-24] MEDS: PANTOprazole 40 MG TAB PO SCH (08:01)
[2022-10-24] MEDS: MAGNESIUM OXIDE 400 MG TAB PO SCH ×2 (08:01→21:39)
[2022-10-24] MEDS: ENOXAPARIN INJ 40 MG/0.4 ML SYR SQ SCH (08:01)
[2022-10-24] MEDS: SERTRALINE HCL 50 MG TABLET PO SCH (08:02)
[2022-10-24] MEDS: EZETIMIBE 10 MG TABLET PO SCH (08:02)
[2022-10-24] MEDS: PIPERACILLIN/TAZOBACTAM 3.375 GM in DEXTROSE 5% 100 ML IV SCH ×3 (08:16→17:42)
[2022-10-24] MEDS: INSULIN ASPART PER UNIT SC SCH ×4 (08:58→21:37)
[2022-10-24 10:15] LABS: Estimated Average Glucose 154 mg/dl
[2022-10-24 10:41] LABS: Hematocrit (blood only) 22.6 % (37.0-47.0); Hemoglobin 7.6 g/dl (12.0-16.0); Mean Corpuscular Hemoglobin 28.7 pg (25.0-34.0); Mean Corpuscular Hgb Conc 33.6 g/dL (32.0-36.0); Mean Corpuscular Volume 85.3 fL (80.0-100.0); Mean Platelet Volume 9.3 fL (9.4-12.4); Platelet Count 107 K/uL (130-400); RDW Coefficient of Variation 16.6 % (11.5-14.5); RDW Standard Deviation 51.8 fL (36.4-46.3); Red Blood Count 2.65 M/uL (4.20-5.40); White Blood Count 4.55 K/ul (4.8-10.8)
[2022-10-24 11:07] LABS: BUN Creatinine Ratio 11.7 (10-20); Calcium 7.9 mg/dl (8.5-10.1); Creatinine Clr Calc Pharmacy 56.4 ml/min; Est GFR (African American) 67.9 ml/min; Est GFR (Non-African American) 58.6 ml/min; Potassium 3.5 mmol/L (3.5-5.1)
[2022-10-24] MEDS: ACETAMINOPHEN 325 MG TAB PO PRN ×3 (11:22→23:27)
[2022-10-24] MEDS ORDERED: VANCOMYCIN HCL 1,250 MG in SODIUM CHLORIDE 0.9% 250 ML IV SCH (12:00)
[2022-10-24] MEDS: guaiFENesin/CODEINE 100MG/10MG 5ML UDC PO SCH ×3 (12:22→23:30)
[2022-10-24] MEDS: predniSONE 20 MG TAB PO SCH (12:22)
[2022-10-24] MEDS ORDERED: OPTIRAY 320 500ml IV ONE (13:11)
--- NOTE | 2022-10-24 13:35 | CT Scan Report ---
CT ANGIOGRAM OF THE CHEST CLINICAL HISTORY: Hemoptysis. Radiation pneumonitis. COMPARISON STUDY: Chest x-ray dated 10/23/2022. TECHNIQUE: Following the IV administration of 112 cc of Optiray 320, CT angiogram of the chest was pe rformed from the upper abdomen to the thoracic inlet utilizing the pulmonary embolus protocol. Images are reviewed in the axial, sagittal, and coronal planes. 3-D MIPS images are created and assessed. I V contrast was administered without complication. A dose lowering technique was utilized adhering to the principles of ALARA. CT DOSE: 400.90 mGy.cm FINDINGS: Thyroid: Imaged portions of the thyroid gland are normal in size and attenuation. Thoracic aorta: The thoracic aorta is normal in caliber and demonstrates variant 3-vessel arch anatom y. There is a bovine arch, and the left vertebral artery arises directly from the thoracic aorta. No dissection is seen. Pulmonary vasculature: The pulmonary trunk is mildly dilated measuring 3.2 cm in diameter. This sugge sts pulmonary artery hypertension. There are no filling defects identified in main, lobar, or segment al pulmonary branches to suggest pulmonary embolus. Heart: A right internal jugular central venous infusion port is in place. The heart is top normal in size noting trace pericardial effusion. Lungs and pleural spaces: There is postsurgical change and volume loss in the left lung with elevatio n of the left hemidiaphragm. There is a small left pleural effusion. There is left perihilar soft tis gabriel which could represent mass lesion versus treatment related change/fibrosis. Groundglass consolida tion is seen throughout the left lung. Dependent atelectasis is seen at the right lung base. Right david ng is otherwise clear. Mediastinum: There is infiltration in the left mediastinum, greatest in the AP window. No enlarged ly mph nodes are clearly seen. Carmela: The left hilum is obscured. There is no right hilar adenopathy. Axillae: There is no axillary lymphadenopathy. Upper abdomen: Partially visualized upper abdominal viscera is within normal limits. Skeletal structures: The skeletal structures are osteopenic. No lytic or blastic bony lesions are see n. IMPRESSION: 1. There is no evidence of pulmonary embolus in the main, lobar, or segmental pulmonary arteries. 2. There is post surgical change and volume loss in the left lung with elevation of the left hemidiap hragm and left perihilar soft tissue. Correlate with any prior imaging studies as well as the patient 's oncological history. 3. Small left pleural effusion. 4. Ground glass consolidation throughout the left lung suggests a nonspecific pneumonitis. Clinical c orrelation will be required. 5. The left hilum is obscured. 6. Infiltration within the mediastinum may be treatment related. Clinical correlation will be require d. 7. Additional findings as above. ACT 112: Negative or not required by law. Electronically signed by: Antony Cannon M.D. 10/24/2022 1:34 PM
--- NOTE | 2022-10-24 13:36 | Pulmonary Consultation ---
Date of Consultation October 24, 2022 Assessment & Plan (1) Left lower lobe pneumonia: Differential is broad at this time including immunotherapy associated ILD, acute bacterial pneumonia, acute atypical bacterial pneumonia, rapid progression of malignancy and other. Recommend slowly weaning steroids over several weeks. Will defer weaning to outpatient oncologist. Recommend discontinuing IV vancomycin as MRSA screen was negative. Continue with doxycycline and Zosyn. If fevers persist, recommend ID consultation. We will hold off bronchoscopy for thoracentesis at this time unless condition worsens despite abx therapy. Fungitell, urine Legionella DFA, sputum culture and PJP DFA ordered. Incentive spirometry ordered. Patient instructed to continue using flutter valve. (2) Hypoxia: Continue to wean oxygen to maintain saturations above 92%. Patient will require home oxygen qualification prior to discharge. (3) Pleural effusion: Too small for sampling. Possibly malignant. Parapneumonic effusion remains a possibility as well. (4) Hemoptysis: We will need to closely monitor. If increases, please give nebulized TXA and will proceed with bronchoscopy. (5) Radiation pneumonitis: Possibly an element of the underlying process. Plan Thank you for the consultation and allowing us to participate in the care of this patient. We will continue to follow closely. History of Present Illness Reason for Consultation: Hypoxia and possible pneumonitis Attending Physician: Tiffanie Drummond MD History of Present Illness Patient's prior chart reviewed in detail. History obtained from patient. 61-year-old male with a history of type 2 diabetes mellitus, non-small cell lung cancer status post lobectomy, chemoradiation and immunotherapy who presented to the hospital due to diarrhea. She had a fever prior to admission. She also related chest pain to the admitting physician. Patient notes that she came to the hospital due to abdominal pain. She denied any diarrhea. She does endorse an increasing dry cough overnight and occasional shortness of breath with exertion. She is currently on oxygen. She also noted mucus streaked with blood earlier in the day. She has not had any recurrence of hemoptysis. She has completed several courses of prednisone and methylprednisolone in the past for radiation pneumonitis. Left upper lobectomy 10/[address] [facility]. Chemotherapy January 2022. May 2022 patient completed 28 rounds of radiation therapy by radiation oncology. Status post EBUS December 01, 2021. PD-L1 expression 60%. Patient is a lifelong non-smoker. She had a chest CTA completed today. No significant pulmonary embolism seen. Left consolidative changes noted around the left hilum with groundglass opacities particularly in the left lower lobe. Patient has evidence of worsening anemia, thrombocytopenia and mild hypocalcemia. She is requiring low-flow oxygen to maintain saturations in the low to mid 90s. She was started on IV vancomycin and Zosyn. She is also on doxycycline. She is also on 40 mg of prednisone which was started by the hospitalist service. PFTs from the radiation oncology note on September 15, 2022 indicated an FEV1 of 2.55 L, 112% and a DLCO of 122%. Allergies Allergy/AdvReac Type Severity Reaction Status Date / Time vaccine adjuvant system, Allergy Intermediate Hives Verified 10/22/22 19:13 AS01B liposomal [From Shingrix (PF)] varicella-zoster virus Allergy Intermediate Hives Verified 10/22/22 19:13 glycoprotein E, recombinant [From Shingrix (PF)] Home Medications Medication Instructions Recorded Confirmed Type acetaminophen 500 mg tablet 1,000 mg PO Q6H PRN Pain 08/04/19 10/22/22 History (Tylenol Extra Strength) cetirizine 10 mg tablet (Zyrtec) 10 mg PO DAILY PRN Allergy Symptoms 08/04/19 10/22/22 History diphenhydramine HCl 25 mg tablet 25 - 50 mg PO Q6H PRN Allergic 08/04/19 10/22/22 History (Benadryl Allergy) Symptoms ibuprofen 200 mg tablet 200 - 400 mg PO Q6H PRN Pain 08/04/19 10/22/22 History omeprazole 20 mg capsule,delayed 20 mg PO QAM Acid Reflux 08/04/19 10/22/22 History release sertraline 50 mg tablet (Zoloft) 75 mg PO QAM 08/04/19 10/22/22 History alprazolam 0.5 mg tablet 0.5 mg PO TID PRN .anxiety when 02/16/22 10/22/22 History flying metformin 500 mg tablet,extended 500 mg PO QAM 02/16/22 10/22/22 History release 24 hr magnesium oxide 400 mg PO BID 05/03/22 10/22/22 History atorvastatin 80 mg tablet 80 mg PO QAM 10/22/22 10/22/22 History ciprofloxacin HCl 500 mg tablet 500 mg PO BID 10/22/22 10/22/22 History ezetimibe 10 mg tablet 10 mg PO QAM 10/22/22 10/22/22 History metronidazole 500 mg tablet 500 mg PO BID 10/22/22 10/22/22 History Patient History Medical History (Updated 10/24/22 @ 14:26 by Kavon Arango MD) Acid reflux Adenocarcinoma l upper lobe Depression Diverticulitis Diverticulosis Hemoptysis Hypoxia Left lower lobe pneumonia Multiple gastric polyps Pleural effusion Radiation pneumonitis Type 2 diabetes mellitus Surgical History (Updated 05/03/22 @ 12:25 by Leola Bronson RN) H/O colonoscopy H/O esophagogastroduodenoscopy H/O oral surgery H/O partial resection of colon History of lobectomy of lung left upper lobe Family History (Updated 05/03/22 @ 12:26 by Leola Bronson RN) Grandfather (Paternal) Angina pectoris Grandmother (Paternal) Myocardial infarction Social History (Updated 05/03/22 @ 12:33 by Leola Bronson RN) Smoking Status: Never smoker Hx Alcohol Use: No Hx Substance Use: No Preferred Language: Luxembourgish Communication Ability: Effective Visual Impairment: No Limitations Hearing Ability: Normal Instruments Sales Representative Required: No Beliefs That Will Affect Care: None marital status: Current Living Situation: Spouse current occupational status: employed current occupation: promotional products distributor Feels Safe at Home: Yes Safety Concerns: Feels Safe At This Time and Afraid for Self Childhood Exposure to Second-Hand Smoke: Yes (In the home) caffeine: Yes (tea) Dental Care, Regularly: Yes Physical Activity Frequency: 3-4 Times per Week Seatbelt Use: always Sunscreen Use: Yes Do you think of yourself as: straight/heterosexual Gender Identity: Female Assistive Devices: None Review of Systems Review of Systems: All systems reviewed & are unremarkable except as noted in HPI & below Physical Exam Physical Exam: Constitutional: Patient appears to be of their stated age. Patient is in no apparent distress. Patient is well-developed. Eyes: Pupils are equal round and reactive to light. Conjunctivae are normal. Anicteric sclera. Ears nose, mouth and throat: Deferred. Neck: Trachea is midline. Visual inspection is normal. Respiratory: Coarse rhonchi in the left lower lobe. Diminished bibasilar. No wheezes. Cardiovascular: Regular rate and rhythm. No murmurs. No edema. Gastrointestinal: Normal bowel sounds, soft, nontender and nondistended. No hepatosplenomegaly noted. Musculoskeletal: No cyanosis. Patient is able to move all extremities. Strength is 5 out of 5 in the upper and lower extremities. Skin: No rashes, warm dry and intact. Neurologic: No obvious focal neurological deficits seen. Psychiatric: Alert and oriented x3 with a euthymic affect. Results & Data Results & Data ([facility]) Vital Signs (Past 12 Hours) Vital Signs Temp Pulse Resp BP BP Pulse Ox O2 Del Method 10/24/22 11:59 38.3 C H 10/24/22 11:24 39 C H 10/24/22 07:30 Nasal Cannula 10/24/22 08:24 37.2 C 90 18 107/70 94 Nasal Cannula 10/24/22 07:21 37.2 C 87 16 98/63 L 95 Nasal Cannula 10/24/22 06:03 37.0 C 89 20 104/65 94 Nasal Cannula 10/24/22 03:02 37.1 C 96 H 18 95/54 L 97 Nasal Cannula 10/24/22 01:39 37.8 C H 104 H 18 97/62 L 93 Nasal Cannula O2 Flow Rate 10/24/22 11:59 10/24/22 11:24 10/24/22 07:30 2 10/24/22 08:24 2 10/24/22 07:21 2 10/24/22 06:03 2 10/24/22 03:02 2 10/24/22 01:39 2 PG Care Time/CCT Total # of Minutes Spent Total Time Spent with Patient: Total time spent is greater than 50% in coordination of care (as documented) at patient's floor/unit and/or counseling patient: Coding Level of Care Code 84860 INT INP/OBS CARE 3/75MIN Diagnoses Left lower lobe pneumonia J18.9 Hypoxia R09.02 Pleural effusion J90 Hemoptysis R04.2 Radiation pneumonitis J70.0
[2022-10-24 14:50] LABS: Hematocrit (blood only) 23.1 % (37.0-47.0); Hemoglobin 7.7 g/dl (12.0-16.0)
--- NOTE | 2022-10-24 15:04 | Pharmacy Report ---
Pharmacy PK ABX Note - Date of Service October 24, 2022 - Assessment and Plan Assessment * Ms Singleton is a 61 year old F receiving vancomycin/Zosyn for empiric treatment/diverticulitis. * Pertinent microbiologic data includes: negative MRSA Nasal Swab, blood cultures pending * PMH is significant for lung CA, radiation pneumonitis, immunocompromise d/t chemo, DM * Pt was prescribed cipro/metronidazole as an outpt, with some resolution of symptoms, but then pt developed fever. Plan Vancomycin * Loading dose: 1500 mg IV x 1 * Maintenance dose: 1250 mg IV every 18 hours * Regimen is predicted to achieve target AUC/NELDA of 400-600 mg/L.hr * No vanc levels have been ordered at this time. If vanc continues beyond 48h, will re-evaluate the need for levels. Suspect that vanc may be discontinued soon d/t negative MRSA swab, unless a non-respiratory indication is suspected. Zosyn 3.375gm IV q8h Doxycycline 100mg IV q12h Pharmacy will continue to follow and will adjust dose/frequency as necessary. Thank you. Pharmacy has transitioned to AUC monitoring for vancomycin. AUC/NELDA is the preferred PK/PD target and is associated with decreased risk of nephrotoxicity compared to traditional trough targets.
--- NOTE | 2022-10-24 15:29 | Hospitalist Progress Note ---
Date of Service October 24, 2022 Assessment & Plan (1) Diverticulitis: Plan 61-year-old lady with PMH of T2DM, HLD, lung neoplasm x left upper lobe s/p lobectomy/chemoradiation currently on immunotherapy since 1 to 2 weeks ago [employer], allergic rhinitis, GERD, HLD who was being treated for diverticulitis as an outpatient with Cipro and Flagyl [she took 2 days worth of antibiotics by presentation time] presented to ED 10/22 with complaint of spiking temperature [38.4C in the ED]. She is being managed for the following: Acute diverticulitis, failure of outpatient therapy Sepsis POA: Elevated temperature and pulse rate at presentation. Patient started on Cipro and Flagyl as an outpatient 2 days [employer], presented 10/22 with fever and lower abdominal pain. Patient is immunocompromised status [see above] Admitting CXR with no acute findings; admitting CTAP positive for acute sigmoid diverticulitis. No perforation or abscess or free intraperitoneal air. Patient started on Zosyn 10/23, will continue with same. Patient reports tolerating diet well, improving lower belly pain, adv diet as reno. Pain management, follow-up GI on discharge. Left Lower lobe pneumonia: Patient had febrile episode over the night of 10/23 - 10/24 despite being on Zosyn since 10/23; it was associated with increasing cough/mostly dry. Had hemoptysis on 10/24. 10/24 UA, 10/23 FOBT and 10/23 MRSA screen are all negative. 10/23 CXR with airspace opacities in the left midlung. 10/24 CTA chest: No evidence of PE. Small left pleural effusion and groundglass consolidation throughout the left lung. Will c/w doxy 10/24; dc vanc; upgrade to med/surg w/ tele. Pulm consulted, appreciate recs - slow wean of steroids over several weeks ---> defer to OP oncologist. Follow-up on blood cultures/Fungitell/urine Legionella DFA/sputum culture/PJP DFA ID consult, await recs. 2 step test prior to DC. Chronic Anemia: OP chart review on 10/23 with hemoglobin ranging from 8.8-12.0 from May 2022 to September 2022. Admitting hemoglobin of 9.3, will monitor as appropriate. FOBT negative. Other chronic medical conditions: Left upper lobe lung cancer -status post lobectomy/chemoradiation, currently under immunotherapy. Follow-up with hematology oncology as prior. Radiation pneumonitis: History of, had received treatments w/ steroid taper in the past. T2DM: Metformin on hold, sliding scale while in hospital HLD: Continue with statin and ezetimibe Anemia and leukopenia: Probably from ongoing chemo. DVT prophylaxis: SCDs Re- hemoptysis. Full code Admission and Anticipated Discharge Date Admission Date: October 22, 2022 Subjective Patient seen and examined at bedside as a follow-up of acute diverticulitis/failure of outpatient treatment. Patient was lying in bed, on 2L NC O2, NAD, with mostly dry cough at bedside. Had febrile/shaky/chills episode overnight w/ increased cough. Reports increasing cough, mostly dry. Reports improving left lower belly pain and has been tolerating diet in that regard. She was started on doxy and vanco overnight on top of her zosyn; she had fever again during the day and had an episode of hemoptysis. Pulm was consulted and notified of the same. Will use SCDs for now for DVT Px. Adv diet as reno. Physical Exam Physical Exam: GENERAL: Alert and oriented x3. NAD, on on 2L NC O2. HEENT: No pallor, no icterus. Pupils equal, round and reactive to light. Oral mucosa moist. NECK: No JVD, no neck masses. HEART: S1 and S2 heard. Regular rate and rhythm. No murmur, no gallop. RESPIRATORY SYSTEM: Normal AP diameter. No accessory muscle use. No wheezing, LLL rales. ABDOMEN: Soft, bowel sounds present, mild abd tender, no distention. CENTRAL NERVOUS SYSTEM: No facial droop. Speech is clear. Obeys simple commands. Moves extremities. EXTREMITIES: No edema, no erythema seen. Results & Data Results & Data ([facility]) Vital Signs (Past 12 Hours) Vital Signs Temp Pulse Resp BP BP Pulse Ox O2 Del Method 10/24/22 14:41 38.2 C H 99 H 18 112/69 97 Room Air 10/24/22 11:59 38.3 C H 10/24/22 11:24 39 C H 10/24/22 07:30 Nasal Cannula 10/24/22 08:24 37.2 C 90 18 107/70 94 Nasal Cannula 10/24/22 07:21 37.2 C 87 16 98/63 L 95 Nasal Cannula 10/24/22 06:03 37.0 C 89 20 104/65 94 Nasal Cannula O2 Flow Rate 10/24/22 14:41 10/24/22 11:59 10/24/22 11:24 10/24/22 07:30 2 10/24/22 08:24 2 10/24/22 07:21 2 10/24/22 06:03 2
[2022-10-25] MEDS: SODIUM CHLORIDE 0.9% 1000ML 1,000 ML IV SCH ×2 (01:07→10:21)
[2022-10-25] MEDS: PIPERACILLIN/TAZOBACTAM 3.375 GM in DEXTROSE 5% 100 ML IV SCH ×3 (01:10→17:05)
[2022-10-25] MEDS: DOXYCYCLINE HYCLATE 100 MG in DEXTROSE 5% 100 ML IV SCH (01:12)
[2022-10-25] MEDS: guaiFENesin/CODEINE 100MG/10MG 5ML UDC PO SCH ×3 (05:17→17:05)
--- NOTE | 2022-10-25 05:19 | Electrocardiogram Report ---
Test Reason : Blood Pressure : / mmHG Vent. Rate : 125 BPM Atrial Rate : 125 BPM P-R Int : 112 ms QRS Dur : 094 ms QT Int : 406 ms P-R-T Axes : 105 -05 036 degrees QTc Int : 585 ms Sinus tachycardia Incomplete right bundle branch block Cannot rule out Inferior infarct (cited on or before 23-OCT-2022) Abnormal ECG When compared with ECG of 22-OCT-2022 18:34, No significant change was found Confirmed by Godfrey Conde ([id number]) on 10/25/2022 5:18:39 AM Referred By: REFERRED SELF Confirmed By:Godfrey Conde
[2022-10-25 07:42] LABS: Hematocrit (blood only) 21.1 % (37.0-47.0); Hemoglobin 7.1 g/dl (12.0-16.0); Mean Corpuscular Hgb Conc 33.6 g/dL (32.0-36.0); Mean Corpuscular Volume 86.1 fL (80.0-100.0); Platelet Count 112 K/uL (130-400); RDW Coefficient of Variation 16.6 % (11.5-14.5); RDW Standard Deviation 52.3 fL (36.4-46.3); Red Blood Count 2.45 M/uL (4.20-5.40); White Blood Count 3.42 K/ul (4.8-10.8)
[2022-10-25 08:03] LABS: BUN Creatinine Ratio 14.9 (10-20); Calcium 8.6 mg/dl (8.5-10.1); Creatinine Clr Calc Pharmacy 58.8 ml/min; Est GFR (African American) 69.6 ml/min; Magnesium 1.6 mg/dl (1.7-2.4); Phosphorus 2.7 mg/dl (2.5-4.9); Potassium 3.5 mmol/L (3.5-5.1)
[2022-10-25] MEDS: PANTOprazole 40 MG TAB PO SCH (08:14)
[2022-10-25] MEDS: MAGNESIUM OXIDE 400 MG TAB PO SCH ×2 (08:14→20:42)
[2022-10-25] MEDS: SERTRALINE HCL 50 MG TABLET PO SCH (08:14)
[2022-10-25] MEDS: ATORVASTATIN 40 MG TAB PO SCH (08:15)
[2022-10-25] MEDS: EZETIMIBE 10 MG TABLET PO SCH (08:15)
[2022-10-25] MEDS: predniSONE 20 MG TAB PO SCH (08:15)
[2022-10-25] MEDS: INSULIN ASPART PER UNIT SC SCH ×4 (08:19→20:42)
[2022-10-25] MEDS ORDERED: POTASSIUM CHLORIDE CRTAB 20 MEQ TABCR PO STA (09:09)
--- NOTE | 2022-10-25 09:25 | Pulmonology Progress Note ---
Date of Service October 25, 2022 Assessment & Plan (1) Left lower lobe pneumonia: Plan: Differential is broad at this time including immunotherapy associated ILD, acute bacterial pneumonia, acute atypical bacterial pneumonia, rapid progression of malignancy and other. Recommend slowly weaning steroids over several weeks. We will decrease prednisone from 40 mg daily to 30 mg starting tomorrow. Will defer weaning to outpatient oncologist. Patient appears to be clinically improving. We will hold off on interventions at this time. We will transition IV doxycycline to p.o. given the burning that she experienced at the IV site where the doxycycline was being infused. Recommend transitioning Zosyn to an oral antibiotic such as Augmentin starting tomorrow. Sputum culture and PJP DFA from sputum ordered. Although it does not seem that the patient was able to give a sputum sample. Urine Legionella and Fungitell pending. Continue incentive spirometer and flutter valve as needed. (2) Hypoxia: Plan: Patient successfully weaned off oxygen. Recommend evaluating for home oxygen prior to discharge. (3) Pleural effusion: Plan: Too small for sampling. Possibly malignant. Parapneumonic effusion remains a possibility as well. Repeat chest x-ray in approximately 2 weeks. (4) Hemoptysis: Plan: No evidence of recurrence. (5) Radiation pneumonitis: Plan: Possibly an element of the underlying process. Plan Thank you for the consultation and allowing us to participate in the care of this patient. We will continue to follow. Anticipate stable for discharge tomorrow from a pulmonary perspective. Admission and Anticipated Discharge Date Admission Date: October 22, 2022 Subjective Patient notes that her cough has largely resolved. She denies any hemoptysis today. She does have some rib pain. She also notes jaw pain and sore throat. Additionally, she mentions "floaters in her eyes". She denies any significant shortness of breath at this time. She is saturating in the mid 90s on room air. Review of Systems Review of Systems: All systems reviewed & are unremarkable except as noted in HPI & below Physical Exam Physical Exam: Constitutional: Patient appears to be of their stated age. Patient is in no apparent distress. Patient is well-developed. Eyes: Pupils are equal round and reactive to light. Conjunctivae are normal. Anicteric sclera. Ears nose, mouth and throat: Deferred. Neck: Trachea is midline. Visual inspection is normal. Respiratory: Rhonchi have improved in the left lower lobe. Clear to auscultation elsewhere. Cardiovascular: Regular rate and rhythm. No murmurs. No edema. Gastrointestinal: Normal bowel sounds, soft, nontender and nondistended. No hepatosplenomegaly noted. Musculoskeletal: No cyanosis. Patient is able to move all extremities. Strength is 5 out of 5 in the upper and lower extremities. Skin: No rashes, warm dry and intact. Neurologic: No obvious focal neurological deficits seen. Psychiatric: Alert and oriented x3 with a euthymic affect. Results & Data Results & Data ([facility]) Vital Signs (Past 12 Hours) Vital Signs Temp Pulse Pulse Resp BP BP Pulse Ox 10/25/22 07:29 37.1 C 104 H 18 97/59 L 95 10/25/22 07:08 81 10/24/22 21:59 93 H 10/25/22 02:41 37.3 C 83 18 107/62 94 10/25/22 01:07 36.8 C 10/24/22 22:54 37.8 C H 93 H 18 110/67 93 O2 Del Method 10/25/22 07:29 Room Air 10/25/22 07:08 10/24/22 21:59 10/25/22 02:41 Room Air 10/25/22 01:07 10/24/22 22:54 Room Air PG Care Time/CCT Total # of Minutes Spent Total Time Spent with Patient: Total time spent is greater than 50% in coordination of care (as documented) at patient's floor/unit and/or counseling patient: Coding Level of Care Code 53833 SUB INP/OBS CARE 2/35MIN Diagnoses Left lower lobe pneumonia J18.9 Hypoxia R09.02 Pleural effusion J90 Hemoptysis R04.2 Radiation pneumonitis J70.0
[2022-10-25] MEDS: MAGNESIUM SULFATE / D5W 1 GM/100 ML BAG IV SCH ×2 (10:22→12:03)
[2022-10-25 10:37] LABS: Ferritin 259.8 ng/ml (8-388)
[2022-10-25 14:57] LABS: Hematocrit (blood only) 24.4 % (37.0-47.0); Hemoglobin 8.3 g/dl (12.0-16.0)
--- NOTE | 2022-10-25 15:04 | Hospitalist Progress Note ---
Date of Service October 25, 2022 Assessment & Plan (1) Diverticulitis: Plan 61-year-old lady with PMH of T2DM, HLD, lung neoplasm x left upper lobe s/p lobectomy/chemoradiation currently on immunotherapy since 1 to 2 weeks ago [employer], allergic rhinitis, GERD, HLD who was being treated for diverticulitis as an outpatient with Cipro and Flagyl [she took 2 days worth of antibiotics by presentation time] presented to ED 10/22 with complaint of spiking temperature [38.4C in the ED]. She is being managed for the following: Acute diverticulitis, failure of outpatient therapy Sepsis POA: Elevated temperature and pulse rate at presentation. Patient started on Cipro and Flagyl as an outpatient 2 days [employer], presented 10/22 with fever and lower abdominal pain. Patient is immunocompromised status [see above] Admitting CXR with no acute findings; admitting CTAP positive for acute sigmoid diverticulitis. No perforation or abscess or free intraperitoneal air. Patient started on Zosyn 10/23, to Augmentin from [facility] AM. Patient reports tolerating diet well, no lower belly pain. Pain management, follow-up GI on discharge. Left Lower lobe pneumonia: Hemoptysis: noted on 10/24, no further hemoptysis per pt. Patient had febrile episode over the night of 10/23 - 10/24 despite being on Zosyn since 10/23; it was associated with increasing cough/mostly dry. Had hemoptysis on 10/24. 10/24 UA, 10/23 FOBT and 10/23 MRSA screen are all negative. 10/23 CXR with airspace opacities in the left midlung. 10/24 CTA chest: No evidence of PE. Small left pleural effusion and groundglass consolidation throughout the left lung. Will c/w doxy 10/24; Pulm on board, appreciate recs - prednisone 30 mg daily from [facility] AM, slow wean of steroids over several weeks ---> defer to OP oncologist. Follow-up on blood cultures/Fungitell/urine Legionella DFA ID consult, await recs. Likely 2 step test prior to DC but was able to successfully wean off of Oxygen. Chronic Anemia: OP chart review on 10/23 with hemoglobin ranging from 8.8-12.0 from May 2022 to September 2022. Admitting hemoglobin of 9.3, will monitor as appropriate. FOBT negative. Iron profile reviewed, b12 low normal, will start b12 supplement. Other chronic medical conditions: Left upper lobe lung cancer -status post lobectomy/chemoradiation, currently under immunotherapy. Follow-up with hematology oncology as prior. Radiation pneumonitis: History of, had received treatments w/ steroid taper i n the past. T2DM: Metformin on hold, sliding scale while in hospital HLD: Continue with statin and ezetimibe Anemia and leukopenia: Probably from ongoing chemo. DVT prophylaxis: lovenox Full code Admission and Anticipated Discharge Date Admission Date: October 22, 2022 Subjective Patient seen and examined at bedside as a follow-up of acute diverticulitis/failure of outpatient treatment. Patient was lying in bed, on RA today, NAD, report improving cough, no further hemoptysis. still with fever, but vitals getting better. Reports improving left lower belly pain and has been tolerating diet in that regard. Physical Exam Physical Exam: GENERAL: Alert and oriented x3. NAD, on RA HEENT: No pallor, no icterus. Pupils equal, round and reactive to light. Oral mucosa moist. NECK: No JVD, no neck masses. HEART: S1 and S2 heard. Regular rate and rhythm. No murmur, no gallop. RESPIRATORY SYSTEM: Normal AP diameter. No accessory muscle use. No wheezing, LLL rales - improving. ABDOMEN: Soft, bowel sounds present, mild abd tender, no distention. CENTRAL NERVOUS SYSTEM: No facial droop. Speech is clear. Obeys simple commands. Moves extremities. EXTREMITIES: No edema, no erythema seen. Results & Data Results & Data ([facility]) Vital Signs (Past 12 Hours) Vital Signs Temp Pulse Pulse Resp BP BP Pulse Ox 10/25/22 11:42 37.8 C H 86 18 108/68 95 10/25/22 09:54 10/25/22 07:29 37.1 C 104 H 18 97/59 L 95 10/25/22 07:08 81 O2 Del Method 10/25/22 11:42 Room Air 10/25/22 09:54 Room Air 10/25/22 07:29 Room Air 10/25/22 07:08
[2022-10-25] MEDS: DOXYCYCLINE HYCLATE 100 MG CAP PO SCH (20:42)
[2022-10-26] MEDS: guaiFENesin/CODEINE 100MG/10MG 5ML UDC PO SCH ×3 (00:04→12:07)
[2022-10-26] MEDS: PIPERACILLIN/TAZOBACTAM 3.375 GM in DEXTROSE 5% 100 ML IV SCH ×2 (00:05→08:33)
[2022-10-26 07:47] LABS: Creatinine Clr Calc Pharmacy 56.5 ml/min; Est GFR (African American) 67.2 ml/min; Est GFR (Non-African American) 57.9 ml/min
[2022-10-26] MEDS: INSULIN ASPART PER UNIT SC SCH ×2 (08:31→12:08)
[2022-10-26] MEDS: PANTOprazole 40 MG TAB PO SCH (08:32)
[2022-10-26] MEDS: MAGNESIUM OXIDE 400 MG TAB PO SCH (08:32)
[2022-10-26] MEDS: DOXYCYCLINE HYCLATE 100 MG CAP PO SCH (08:32)
[2022-10-26] MEDS: ATORVASTATIN 40 MG TAB PO SCH (08:32)
[2022-10-26] MEDS: EZETIMIBE 10 MG TABLET PO SCH (08:32)
[2022-10-26] MEDS: SERTRALINE HCL 50 MG TABLET PO SCH (08:33)
[2022-10-26] MEDS ORDERED: CYANOCOBALAMIN (B-12) 100 MCG TABLET PO SCH (09:00)
[2022-10-26] MEDS ORDERED: predniSONE 10 MG TABLET PO SCH (09:00)
[2022-10-26] MEDS ORDERED: AMOXICILLIN/CLAVULANATE 875 MG TAB PO SCH (09:15)
[2022-10-26] MEDS: ENOXAPARIN INJ 40 MG/0.4 ML SYR SQ SCH (10:03)
--- NOTE | 2022-10-26 14:32 | Pulmonology Progress Note ---
Date of Service October 26, 2022 Assessment & Plan (1) Left lower lobe pneumonia: Plan: Differential is broad at this time including immunotherapy associated ILD, acute bacterial pneumonia, acute atypical bacterial pneumonia, rapid progression of malignancy and other. Recommend slowly weaning steroids over several weeks. Will defer weaning to outpatient oncologist. Patient appears to be clinically improving. Stable for discharge today on a course of oral antibiotics. Urine Legionella and Fungitell pending. PET scan scheduled for November 08 through [email or web address]. We will have the patient follow-up with in the pulmonary clinic with me after that scan is complete. (2) Hypoxia: Plan: Patient successfully weaned off oxygen. (3) Pleural effusion: Plan: Too small for sampling. Possibly malignant. Parapneumonic effusion remains a possibility as well. PET scan scheduled for later this month. (4) Hemoptysis: Plan: No evidence of recurrence. (5) Radiation pneumonitis: Plan: Possibly an element of the underlying process. Plan Thank you for the consultation and allowing us to participate in the care of this patient. We will continue to follow. Anticipate stable for discharge tomorrow from a pulmonary perspective. Admission and Anticipated Discharge Date Admission Date: October 22, 2022 Subjective Patient notes she felt tired this morning, but she has progressively improved throughout the day. She denies any fevers or chills. No chest pain. She still continues to have a mild headache. Review of Systems Review of Systems: All systems reviewed & are unremarkable except as noted in HPI & below Physical Exam Physical Exam: Constitutional: Patient appears to be of their stated age. Patient is in no apparent distress. Patient is well-developed. Eyes: Pupils are equal round and reactive to light. Conjunctivae are normal. Anicteric sclera. Ears nose, mouth and throat: Deferred. Neck: Trachea is midline. Visual inspection is normal. Respiratory: Rhonchi have improved in the left lower lobe. Clear to auscultation elsewhere. Cardiovascular: Regular rate and rhythm. No murmurs. No edema. Gastrointestinal: Normal bowel sounds, soft, nontender and nondistended. No hepatosplenomegaly noted. Musculoskeletal: No cyanosis. Patient is able to move all extremities. Strength is 5 out of 5 in the upper and lower extremities. Skin: No rashes, warm dry and intact. Neurologic: No obvious focal neurological deficits seen. Psychiatric: Alert and oriented x3 with a euthymic affect. Results & Data Results & Data ([facility]) Vital Signs (Past 12 Hours) Vital Signs Temp Pulse Pulse Resp BP Pulse Ox O2 Del Method 10/26/22 11:15 37.4 C 93 H 18 124/74 93 Room Air 10/26/22 07:47 37.5 C 84 18 129/76 95 Room Air 10/26/22 07:12 75 10/26/22 02:55 37.5 C 93 H 18 109/72 98 Room Air PG Care Time/CCT Total # of Minutes Spent Total Time Spent with Patient: Total time spent is greater than 50% in coordination of care (as documented) at patient's floor/unit and/or counseling patient: Coding Level of Care Code 86906 SUB INP/OBS CARE 2/35MIN Diagnoses Left lower lobe pneumonia J18.9 Hypoxia R09.02 Pleural effusion J90 Hemoptysis R04.2 Radiation pneumonitis J70.0
--- NOTE | 2022-10-26 15:11 | Discharge Summary ---
Date of Service October 26, 2022 Admission HPI Per Admitting Provider CHIEF COMPLAINT: Fever. 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 The patient says she developed some abdominal pain in mid abdomen radiating to left lower quadrant, left flank and also had an episode of explosive diarrhea few days ago and felt like having diverticulitis as she had many episodes of diverticulitis. So she called family doctor and she could not get appointment and she was prescribed Cipro and Flagyl, which she started on last night and she went to PCP office yesterday, and advised to continue the antibiotics, soft diet and to go to the ER if symptoms worsen. Her abdominal pain is improved, but she developed fever today, that is the reason she came to the ER. She was having spike in temperature 38.4 in the ER and CAT scan showing sigmoid diverticulitis, so we were called for admission. Currently, resting comfortably, hemodynamically stable. She has some mild headache. No fever, no neck pain. She has on and off chest pain now, says, from radiation pneumonitis.Chest pain goes to the back and shoulder that comes and goes. Lately it is getting worse, but currently the pain is not there. Says she is always short of breath since radiation and also has cough. Denies any blurred visions, no earache, no runny nose, no sore throat. No nausea, no vomiting. Currently normal bowel movements. Normal bladder movements. No swelling in the legs ALLERGIES: SHINGRIX VACCINE VARICELLA-ZOSTER VIRUS RECOMBINANT VACCINE. MEDICATIONS: The patient is on Tylenol 1000 mg p.o. q. 6 hours p.r.n., alprazolam 0.5 mg p.o. t.i.d. p.r.n., atorvastatin 80 mg p.o. daily, Zyrtec 10 mg p.o. daily p.r.n., ciprofloxacin 500 mg p.o. b.i.d., Flagyl 500 mg p.o. t.i.d., Benadryl 25 mg p.o. q. 6 hours p.r.n., ezetimibe 10 mg p.o. daily, ibuprofen 200-400 mg p.o. q. 6 hours p.r.n., magnesium oxide 400 mg p.o. b.i.d., metformin 500 mg p.o. a.m., omeprazole 20 mg p.o. a.m. p.r.n., Zoloft 75 mg p.o. a.m. FAMILY HISTORY: Significant for daughter has allergies, son has bipolar disorder, father had cirrhosis and heart disorder, maternal grandfather had heart disorder, paternal grandfather had heart disorder, maternal grandmother had heart disorder. SOCIAL HISTORY: , no smoking. Alcohol, rarely. No drug use. REVIEW OF SYSTEMS: As per HPI. Rest of the review of systems is negative. Admission Exam Per Admitting Provider GENERAL: The patient is of moderate build, not in acute distress. VITAL SIGNS: Temperature 37.5, T-max 38.4, pulse 106, respiratory rate 19, blood pressure 135/79, oxygen 96% on room air. HEENT: Pupils equal, round and reactive to light. Oral mucosa moist. NECK: No JVD, no neck masses. CARDIOVASCULAR: S1 and S2 heard. Regular rate and rhythm. No murmur, no gallop. RESPIRATORY SYSTEM: Normal AP diameter. No accessory muscle use. No wheezing or crackles. ABDOMEN: Soft. Bowel sounds present. Mild left lower quadrant tenderness. No guarding, no rigidity, no distention. CENTRAL NERVOUS SYSTEM: Alert and oriented. Speech is clear. No facial droop. Obeys simple commands. Moves extremities. EXTREMITIES: No edema, no erythema. Principal Diagnosis Acute diverticulitis Sepsis POA Left lower lobe pneumonia versus pneumonitis Hemodialysis, transient Chronic anemia Discharge Exam GENERAL: Alert and oriented x3. NAD, on RA HEENT: No pallor, no icterus. Pupils equal, round and reactive to light. Oral mucosa moist. NECK: No JVD, no neck masses. HEART: S1 and S2 heard. Regular rate and rhythm. No murmur, no gallop. RESPIRATORY SYSTEM: Normal AP diameter. No accessory muscle use. No wheezing,no crackles ABDOMEN: Soft, bowel sounds present, mild abd tender, no distention. CENTRAL NERVOUS SYSTEM: No facial droop. Speech is clear. Obeys simple commands. Moves extremities. EXTREMITIES: No edema, no erythema seen. Discharge Data Allergies Allergy/AdvReac Type Severity Reaction Status Date / Time vaccine adjuvant system, Allergy Intermediate Hives Verified 10/22/22 19:13 AS01B liposomal [From Shingrix (PF)] varicella-zoster virus Allergy Intermediate Hives Verified 10/22/22 19:13 glycoprotein E, recombinant [From Shingrix (PF)] Consultations 10/22/22 20:51 ED Decision to Admit Stat 10/24/22 11:32 Consult Pulmonology Routine 10/24/22 15:04 Consult Infectious Diseases Routine Ordered Studies 10/22/22 18:34 CT abd pelvis IV con only Stat 10/24/22 11:39 CT angio chest PE protocol Routine Hospital Course (1) Diverticulitis: Plan 61-year-old lady with PMH of T2DM, HLD, lung neoplasm x left upper lobe s/p lobectomy/chemoradiation currently on immunotherapy since 1 to 2 weeks ago [employer], allergic rhinitis, GERD, HLD who was being treated for diverticulitis as an outpatient with Cipro and Flagyl [she took 2 days worth of antibiotics by presentation time] presented to ED 10/22 with complaint of spiking temperature [38.4C in the ED]. She was managed for the following: Acute diverticulitis, failure of outpatient therapy Sepsis POA: Elevated temperature and pulse rate at presentation. Patient started on Cipro and Flagyl as an outpatient 2 days [employer], presented 10/22 with fever and lower abdominal pain. Patient is immunocompromised status [see above] Admitting CXR with no acute findings; admitting CTAP positive for acute sigmoid diverticulitis. No perforation or abscess or free intraperitoneal air. Patient started on Zosyn 10/23, to Augmentin from 10/26 d/w ID, plan to dc w/ total of 14 days therapy on cipro and augmentin. Probiotics added. Pt made aware. Patient reports tolerating diet well, no lower belly pain. Follow-up GI on discharge. Left Lower lobe pneumonia vs pneumonitis (likely 2/2 atezolizumab): Hemoptysis: noted on 10/24, no further hemoptysis per pt. Patient had febrile episode over the night of 10/23 - 10/24 despite being on Zosyn since 10/23; it was associated with increasing cough/mostly dry. Had hemoptysis on 10/24. 10/24 UA, 10/23 FOBT and 10/23 MRSA screen are all negative. 10/23 CXR with airspace opacities in the left midlung. 10/24 CTA chest: No evidence of PE. Small left pleural effusion and groundglass consolidation throughout the left lung. 10/24 doxy --ID evaled, atb as above. d/w pulm, pt good to dc from their POV. On prednisone 30 mg daily, wean per oncologist. Pt is aware. Follow-up on blood cultures/Fungitell/urine Legionella DFA -- penindg, pt to f/u with PCP office on DC. Pt hemodynamically stable, no further hemoptysis, reports significant improvement in her cough. Chronic Anemia: OP chart review on 10/23 with hemoglobin ranging from 8.8-12.0 from May 2022 to September 2022. Admitting hemoglobin of 9.3, will monitor as appropriate. FOBT negative. Iron profile reviewed, b12 low normal, c/w b12 supplement. Other chronic medical conditions: Left upper lobe lung cancer -status post lobectomy/chemoradiation, currently under immunotherapy. Follow-up with hematology oncology as prior. Radiation pneumonitis: History of, had received treatments w/ steroid taper in the past. T2DM: Metformin on hold, sliding scale while in hospital HLD: Continue with statin and ezetimibe Anemia and leukopenia: Probably from ongoing chemo. DVT prophylaxis: lovenox Full code Patient being discharged to home with following instruction at the point of discharge: Follow-up with your primary care physician within a week time and likely you will need labs CBC/CMP/magnesium/phosphorus. Follow-up on the final results of blood cultures/Fungitell/urine Legionella DFA obtained this admission at your next PCP visit. For your diverticulitis, you are being discharged on antibiotic. Complete the course. Follow up with GI as outpatient in 8 weeks time. For your left lung pneumonia versus pneumonitis, you are being discharged on antibiotic and also on steroid. As per our discussion, your pneumonitis likely could be due to your immunotherapy atezolizumab. Please communicate this message to your oncologist at your next visit which is due for next Monday as per yourself. Also discuss regarding tapering of your steroid doses with your outpatient oncology. You will be discharged on 30 mg daily for 10 days, which needs further eval/prescription from your outpatient oncology. Maintain heart healthy diet/diabetic diet/healthy lifestyle. Follow-up with your diabetic clinic or PCP for ongoing management of your diabetes. Since you will be on oysterman steroid, your metformin will be increased to 500 mg twice a day with meal. Recommend repeating A1c in 3 months. Based on the duration of your steroid use per oncology recommendation, you will need your diabetic medication adjusted. In that case, communicate with your primary care physician or diabetic clinic for additional evaluation/adjustment in your diabetes medications. Follow-up for your PET scan as scheduled on November 08 through [facility]. Take your medications as prescribed. Please make sure that you are able to get your medications today by calling your pharmacy before you leave the hospital so that your treatment continuity is not broken. Home Health Attestation I certify that this patient is under my care and that I, or a physicians head start assistant teacher working with me, had a face to-face encounter that meets the [id number] encounter requirements with this patient. The encounter with the patient was in whole, or in part, for the following medical condition, which is the primary reason for home health care (list medical condition): I certify that, based on my findings, the following services are medically necessary home health services: My clinical findings support the need for the above services because: Further, I certify that my clinical findings support that this patient is homebound (i.e. absences from home require considerable and taxing effort and are for medical reasons or [facility] services or infrequently or of short duration when for other reasons) because: Certification for Home Health Services: Based on the above findings, I certify that this patient is confined to the home and needs intermittent [facility] care, physical therapy and/or speech therapy or continues to need occupational therapy. The patient is under my care, and I have initiated the establishment of the plan of care. This patient will be followed by a physician who will periodically review the plan of care. Total Time Total Time Spent Total Time Spent (In Minutes): 60 Discharge Plan Discharge Items Patient Disposition: Home - Self-Care Reason For Visit: FEVER, diverticulitis Discharge Diagnosis: Acute diverticulitis Sepsis POA Left lower lobe pneumonia versus pneumonitis Hemodialysis, transient Chronic anemia Activity: Resume your previous activity Non-emergency contact: Primary Care Provider Call non-emergency contact if: you have any medication questions, your symptoms worsen and your temperature is above 101 Follow-up/Referrals: Kevin Reynolds MD [Primary Care Provider] - Diet: Carb Consistent or DM2 and Low Fiber Addtl Attending Provider Instructions: Follow-up with your primary care physician within a week time and likely you will need labs CBC/CMP/magnesium/phosphorus. Follow-up on the final results of blood cultures/Fungitell/urine Legionella DFA obtained this admission at your next PCP visit. For your diverticulitis, you are being discharged on antibiotic. Complete the course. Follow up with GI as outpatient in 8 weeks time. For your left lung pneumonia versus pneumonitis, you are being discharged on antibiotic and also on steroid. As per our discussion, your pneumonitis likely could be due to your immunotherapy atezolizumab. Please communicate this message to your oncologist at your next visit which is due for next Monday as per yourself. Also discuss regarding tapering of your steroid doses with your outpatient oncology. You will be discharged on 30 mg daily for 10 days, which needs further eval/prescription from your outpatient oncology. Maintain heart healthy diet/diabetic diet/healthy lifestyle. Follow-up with your diabetic clinic or PCP for ongoing management of your diabetes. Since you will be on mcc steroid, your metformin will be increased to 500 mg twice a day with meal. Recommend repeating A1c in 3 months. Based on the duration of your steroid use per oncology recommendation, you will need your diabetic medication adjusted. In that case, communicate with your primary care physician or diabetic clinic for additional evaluation/adjustment in your diabetes medications. Follow-up for your PET scan as scheduled on November 08 through [facility] [address] [facility]ology. Take your medications as prescribed. Please make sure that you are able to get your medications today by calling your pharmacy before you leave the hospital so that your treatment continuity is not broken. Pending Studies at Discharge: Yes (Blood culture final results) Stand-Alone Forms: My [employer], Smoking Cessation Medications and DC Order Prescriptions: New amoxicillin-pot clavulanate 875-125 mg Tablet 1 tab PO BIDM 11 Days Qty: 22 0RF ciprofloxacin HCl 500 mg tablet 500 mg PO BID 11 Days Qty: 22 0RF prednisone 10 mg Tablet 30 mg PO DAILY 10 Days Qty: 30 0RF cyanocobalamin (vitamin B-12) [Vitamin B-12] 100 mcg Tablet 100 mcg PO QAM Qty: 30 0RF Probiotic 3 billion cell capsule 3,000 mmu cells PO DAILY 14 Days Qty: 14 0RF Rx Instructions: administer with a meal Continued omeprazole 20 mg capsule,delayed release(DR/EC) 20 mg PO QAM sertraline [Zoloft] 50 mg tablet 75 mg PO QAM cetirizine [Zyrtec] 10 mg Tablet 10 mg PO DAILY PRN (Reason: Allergy Symptoms) acetaminophen [Tylenol Extra Strength] 500 mg Tablet 1,000 mg PO Q6H PRN (Reason: Pain) diphenhydramine HCl [Benadryl Allergy] 25 mg Tablet 25 - 50 mg PO Q6H PRN (Reason: Allergic Symptoms) ibuprofen 200 mg Tablet 200 - 400 mg PO Q6H PRN (Reason: Pain) alprazolam 0.5 mg tablet 0.5 mg PO TID PRN (Reason: .anxiety when flying) atorvastatin 80 mg tablet 80 mg PO QAM ezetimibe 10 mg tablet 10 mg PO QAM magnesium oxide 400 mg magnesium Tablet 400 mg PO BID Rx Instructions: ON HOLD TILL AFTER ANTIBIOTICS DONE. Changed metformin 500 mg tablet extended release 24 hr 500 mg PO BID Qty: 60 0RF Discontinued metronidazole 500 mg tablet 500 mg PO BID Rx Instructions: STARTED 10/20/22 FOR 10 DAYS ciprofloxacin HCl 500 mg tablet 500 mg PO BID Rx Instructions: STARTED 10/20/22 FOR 10 DAYS. Discharge Orders: Discharge Order (Routine); Ordered 10/26/22 Ordered By: Tiffanie Drummond Admission Data Admit Date/Time: 10/22/22 21:51 Attending Provider: Tiffanie Drummond Admit Provider: Tiffanie Drummond Primary Care Provider: Kevin Reynolds Other Providers: Jaskaran Campbell ; Kavon Arango ; Selvin Leon ; Heath Holliday ; Arron Singh I. ; Jarrell Arellano II ; Anika Valerio ; Felipe Nuñez ; Roe Milner ; Nisha Luna
[2022-10-28 20:42] LABS: Fungitell (1-3)-B-D-Glucan <31 pg/mL
--- NOTE | 2022-10-31 13:00 | Coding Query ---
CODING QUERY To promote full compliance with coding requirements relating to patient care, provider participation is requested in all cases of label coder uncertainty. Please assist us with the question(s) below: Coding Question(s): Sepsis POA is documented in the record starting on the 10/23 Progress Note and is on the Discharge Summary. Please specify below, in your clinical opinion, the most likely cause/source of Sepsis: ( x) Acute Diverticulitis ( ) Other: Please Specify ( ) Unknown Physician's Response(s): Thank you Christiana Schmidt Principal Diagnosis: "that condition established after study, to be chiefly responsible for occasioning the admission of the patient to the hospital for care." Co-Existing Principal Diagnosis: "when two or more diagnoses equally meet the criteria for principal diagnosis as determined by the circumstances of admission, diagnostic work up, and/or therapy provided, and the Alphabetic Index, Tabular List, or another coding guideline does not provide sequencing direction, any one of the diagnoses may be sequenced first." "When the physician has documented what appears to be a current diagnosis in the body of the record, but has not included the diagnosis in the final diagnostic statement, the physician should be asked whether the diagnosis should be added." (Source Coding [facility] 2 QTR90. p3-4) ERNESTO
== END 2022-10-26 17:15 | disposition home or self-care (01) | DRG 871 ==
LOC: ED 18:08 → 3N 21:51 → 2W 10-24 14:33